=== PATIENT | male | born 1965 | race Caucasian/White ===

== ENCOUNTER 2024-09-16 18:16 | Emergency (ER) | payer BC, SELFPAY ==
[2024-09-16] VITALS (7 sets, daily range): BP systolic 136–164; BP diastolic 91–107; PULSE 79–84; RESP 17–21; TEMP 36.6; O2SAT 92–99; BMI 31.1
--- NOTE | 2024-09-16 18:37 | CT_ITS ---
PROCEDURE: CTA CHEST W/WO CONTRAST 09/16/2024 REASON FOR EXAM: CHEST PAIN, SOB TECHNIQUE: CTA axial imaging of the chest with intravenous contrast. Multiplanar and multisequence images were obtained. PATIENT PREPARATION: Per protocol One or more dose reduction techniques were used (e.g., Automated exposure control, adjustment of the mA and/or kV according to patient size, use of iterative reconstruction technique). CONTRAST: Omnipaque 350 VOLUME: 100 mL Not Provided Gauge IV COMPARISON: None FINDINGS: Hardware: None Lymph nodes: No suspicious adenopathy. Heart: Mild cardiomegaly. No pericardial effusion. Severe coronary artery calcifications. Thoracic Aorta: No thoracic aortic aneurysm or dissection. Pulmonary Vessels: No large central pulmonary emboli are identified. Contrast timing is suboptimal for evaluation of more distal branches. Most Proximal Level of Embolus (if embolus present): None Lungs and Airways: Central airways are patent without endobronchial lesions. Small amount of retained secretions. Patchy opacities in the lung bases, compatible with scarring and atelectasis. Linear opacities in the lingula and anterior right middle lobe, compatible with subsegmental atelectasis. No pneumothorax. No pleural effusion. Upper Abdomen: Contrast refluxes into the hepatic veins, suggestive of right heart dysfunction. Bones: Degenerative changes of the thoracic spine. CT/CTA Chest W/WO Contrast IMPRESSION: No evidence of pulmonary embolism or acute findings in the thorax. Contrast reflux into the hepatic veins, suggestive of right heart dysfunction. Reading Location: [facility]
--- NOTE | 2024-09-16 18:38 | ED.VIS.CHEST ---
HPI <MARKOS Blood - Last Filed: 09/16/24 21:41> History of Present Illness Chief Complaint: Chest Pain Narrative Narrative: Patient presenting today with midsternal chest pain that he describes as an aching/pressure sensation. He reports that the pain started about 30 minutes prior to arrival. It has been constant, nothing seems to make it better or worse. He is s/p CABG x [address] Fatima on 08/24/2024. He had a follow-up yesterday with the [facility] and was told everything was looking good. He reports that since yesterday he has had a mild dyspnea that seems to be worse today. No history of blood clots. He has a PMH of CAD, CVD, AG, COPD, frequent alcohol use, and tobacco abuse. He additionally reports a mild cough, he reports that coughing and taking deep breaths seems to worsen his chest pain. He has had no fevers or chills. PFSH <MARKOS Blood - Last Filed: 09/16/24 21:41> PFSH Medical History Blepharitis, right eye Conjunctivitis, right eye Back pain Neck pain Stroke Home Medications ?Medication ?Instructions ?Recorded ?Last Taken ?Type atorvastatin 10 mg tablet (Lipitor) 10 mg PO DAILY 12/17/22 Unknown History clopidogrel 75 mg tablet (Plavix) 75 mg PO DAILY 12/17/22 Unknown History tobramycin 0.3 % eye drops 1 drp ophthalmic (eye) Q2H #5 mL 12/17/22 Unknown Rx Allergy/AdvReac Type Severity Reaction Status Date / Time morphine Allergy Mild OTHER Verified 09/16/24 18:17 Social History Smoking Status: Current every day smoker tobacco type: cigarettes ROS <MARKOS Blood - Last Filed: 09/16/24 21:41> ROS ED Constitutional Constitutional ED: Denies chills or fever(s) Cardiovascular Cardiovascular: Reports chest pain; Denies palpitations Respiratory/Chest Respiratory/Chest: Reports cough and dyspnea; Denies wheezing Gastrointestinal Gastrointestinal: Denies abdominal pain, nausea or vomiting Musculoskeletal Musculoskeletal: Denies arthralgias or myalgias Integumentary Denies rash Neurologic Neurologic: Denies weakness EXAM <Aury Ridley PA - Last Filed: 09/16/24 21:41> Physical Exam Const Vital Signs: 09/16/24 18:18 09/16/24 18:19 09/16/24 18:36 Temperature 97.8 F Temperature Source Oral Pulse Rate 81 Respiratory Rate 19 H Respiratory Effort Short of Breath Blood Pressure 164/99 H Blood Pressure Mean 120 Pulse Ox 99 Oxygen Delivery Method Room Air Room Air 09/16/24 19:17 09/16/24 20:00 09/16/24 20:30 Temperature Temperature Source Pulse Rate 84 82 80 Respiratory Rate 18 18 21 H Respiratory Effort Blood Pressure 151/91 H 143/104 H 148/100 H Blood Pressure Mean 111 117 115 Pulse Ox 97 97 93 Oxygen Delivery Method Room Air 09/16/24 22:00 Temperature Temperature Source Pulse Rate 81 Respiratory Rate 17 Respiratory Effort Blood Pressure 136/96 H Blood Pressure Mean 109 Pulse Ox 94 Oxygen Delivery Method Room Air Positive well nourished, well developed and no apparent distress General Appearance ED: well developed HEENT Reports normocephalic and head/scalp atraumatic Mouth ED: Yes moist mucous membranes normal Eyes PERRL and EOMs intact bilaterally Neck full ROM and supple Chest Wall inspection of chest normal Chest Narrative: Incision is healing well, no erythema, no chest wall bruising, no warmth, Left-sided chest wall tenderness to palpation Resp normal respiratory effort and clear to auscultation bilaterally Cardio regular rate and regular rhythm GI soft to palpation, non-tender, non-distended and no masses Back/Spine normal ROM and normal to inspection Extremity normal to inspection and full ROM Neuro oriented x3, CN's II-XII intact bilaterally, moves all extremities, no focal motor deficits and no sensory deficits noted Sensorium / Orientation: awake and alert Psych mental status grossly normal and thought process normal Skin no rashes or lesions noted and no wounds <Dr. Aneesh Mast DO - Last Filed: 09/16/24 22:13> Physical Exam Const Vital Signs: 09/16/24 18:18 09/16/24 18:19 09/16/24 18:36 Temperature 97.8 F Temperature Source Oral Pulse Rate 81 Respiratory Rate 19 H Respiratory Effort Short of Breath Blood Pressure 164/99 H Blood Pressure Mean 120 Pulse Ox 99 Oxygen Delivery Method Room Air Room Air 09/16/24 19:17 09/16/24 20:00 09/16/24 20:30 Temperature Temperature Source Pulse Rate 84 82 80 Respiratory Rate 18 18 21 H Respiratory Effort Blood Pressure 151/91 H 143/104 H 148/100 H Blood Pressure Mean 111 117 115 Pulse Ox 97 97 93 Oxygen Delivery Method Room Air 09/16/24 22:00 Temperature Temperature Source Pulse Rate 81 Respiratory Rate 17 Respiratory Effort Blood Pressure 136/96 H Blood Pressure Mean 109 Pulse Ox 94 Oxygen Delivery Method Room Air MDM <MARKOS Blood - Last Filed: 09/16/24 21:41> [facility] MDM Narrative Medical 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 He is s/p CABG x 5 on 08/[address] Fatima. Cardiac workup will be obtained. CT of the chest will be obtained given recent surgery to assess for PE, infiltrate, and other cardiopulmonary abnormality. His CBC and BMP are largely unremarkable, initial troponin is 19. I did speak with on-call cardiothoracic surgeon, Dr. Pedro,. Recommended obtaining repeat troponin but otherwise did not feel that patient required transfer at this time and could follow-up in the office early next week as long as his delta troponin was unremarkable. Patient was given a small dose of IV Dilaudid for his pain, he did report improvement of his symptoms with this. Repeat troponin is elevated here at 72. He was started on IV heparin for NSTEMI, EKG did not show any ST elevation. I spoke with Dr. Peacock at [facility], he will be transferred ED to ED in stable condition. Lab Data Attestation: I reviewed the patient's lab results. Labs: Laboratory Results - last 24 hr 09/16/24 09/16/24 09/16/24 17:55 18:20 20:30 WBC Cancelled 10.4 Corrected WBC Cancelled RBC Cancelled 3.91 L Hgb Cancelled 12.3 L Hct Cancelled 36.9 L MCV Cancelled 94.4 H MCH Cancelled 31.5 MCHC Cancelled 33.3 RDW Std Deviation Cancelled 48.7 H RDW Coeff of Deepa Cancelled 14.1 Plt Count Cancelled 529 H MPV Cancelled 9.5 Immature Gran % (Auto) 0.500 Neut % (Auto) 59.7 Lymph % (Auto) 21.0 [place] % (Auto) 11.3 H Eos % (Auto) 6.2 H Baso % (Auto) 1.3 H Absolute Neuts (auto) 6.2 Absolute Lymphs (auto) 2.18 Nucleated RBC % 0 [address] Review Cancelled PT INR APTT Sodium Cancelled 135 Potassium Cancelled 4.1 Chloride Cancelled 98 Carbon Dioxide Cancelled 22.4 Anion Gap Cancelled 14 BUN Cancelled 10 Creatinine Cancelled 0.66 L Estim Creat Clear Calc Cancelled 129.23 Est GFR (MDRD) Non-Af Cancelled 108 BUN/Creatinine Ratio Cancelled 15.7 Glucose Cancelled 166 H Calcium Cancelled 10.1 Total Bilirubin Cancelled AST Cancelled ALT Cancelled Alkaline Phosphatase Cancelled Troponin T High Sens 19 Troponin T Hi Sens 2 Hr 72 H* Total Protein Cancelled Albumin Cancelled Globulin Cancelled Albumin/Globulin Ratio Cancelled Urine Color Cancelled Urine Clarity Cancelled Urine pH Cancelled Ur Specific [place] Cancelled U Specif Grav (Refrac) Cancelled Urine Protein Cancelled Urine Glucose (UA) Cancelled Urine Ketones Cancelled Urine Occult Blood Cancelled Urine Nitrite Cancelled Urine Bilirubin Cancelled Urine Urobilinogen Cancelled Ur Leukocyte Esterase Cancelled 09/16/24 21:32 WBC Corrected WBC RBC Hgb Hct MCV MCH MCHC RDW Std Deviation RDW Coeff of Deepa Plt Count MPV Immature Gran % (Auto) Neut % (Auto) Lymph % (Auto) [place] % (Auto) Eos % (Auto) Baso % (Auto) Absolute Neuts (auto) Absolute Lymphs (auto) Nucleated RBC % Diff Path Review PT 13.6 INR 1.0 APTT 27.9 Sodium Potassium Chloride Carbon Dioxide Anion Gap BUN Creatinine Estim Creat Clear Calc Est GFR (MDRD) Non-Af BUN/Creatinine Ratio Glucose Calcium Total Bilirubin AST ALT Alkaline Phosphatase Troponin T High Sens Troponin T Hi Sens 2 Hr Total Protein Albumin Globulin Albumin/Globulin Ratio Urine Color Urine Clarity Urine pH Ur Specific [place] U Specif Grav (Refrac) Urine Protein Urine Glucose (UA) Urine Ketones Urine Occult Blood Urine Nitrite Urine Bilirubin Urine Urobilinogen Ur Leukocyte Esterase Radiography Diagnostic Testing: Clinical Impression(s) from Imaging Studies Chest CTA 09/16/24 18:37 IMPRESSION: No evidence of pulmonary embolism or acute findings in the thorax. Contrast reflux into the hepatic veins, suggestive of right heart dysfunction. Reading Location: [facility] EKG Initial EKG: Comments: 81 bpm, normal sinus rhythm, no ST elevation, interpreted by attending physician <Dr. 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 He is s/p CABG x 5 on 08/[address] Fatima. Cardiac workup will be obtained. CT of the chest will be obtained given recent surgery to assess for PE, infiltrate, and other cardiopulmonary abnormality. His CBC and BMP are largely unremarkable, initial troponin is 19. I did speak with on-call cardiothoracic surgeon, Dr. Pedro,. Recommended obtaining repeat troponin but otherwise did not feel that patient required transfer at this time and could follow-up in the office early next week as long as his delta troponin was unremarkable. Patient was given a small dose of IV Dilaudid given morphine allergy for his pain, he did report improvement of his symptoms with this. Repeat troponin is elevated here at 72. He was started on IV heparin for NSTEMI, EKG did not show any ST elevation. I spoke with Dr. Peacock at [facility], he will be transferred ED to ED in stable condition. ED attending note: I evaluated the patient in conjunction with the ADAM. I agree with his/her statements and above findings. I have personally performed a face to face assessment of the patient and have reviewed the DAAM Note. I performed a substantive portion of the visit including all aspects of the following. I personally saw the patient performed chart review, physical exam, reviewed labs, imaging (if obtained), and formulated a treatment and management plan. History and exam as above: MDM/plan: Plan to obtain a broad lab and imaging workup given recent CABG. Have a low sufficient for admission given chest pain in the setting of recent invasive cardio thoracic surgery. Will reach out to the patient's thoracic surgeon to assist in disposition. This note was generated with [employer] dictation software. It may contain incorrect words, spelling, and punctuation that were not noted in review of the chart prior to signing. Lab Data Labs: Laboratory Results - last 24 hr 09/16/24 09/16/24 09/16/24 17:55 18:20 20:30 WBC Cancelled 10.4 Corrected WBC Cancelled RBC Cancelled 3.91 L Hgb Cancelled 12.3 L Hct Cancelled 36.9 L MCV Cancelled 94.4 H MCH Cancelled 31.5 MCHC Cancelled 33.3 RDW Std Deviation Cancelled 48.7 H RDW Coeff of Deepa Cancelled 14.1 Plt Count Cancelled 529 H MPV Cancelled 9.5 Immature Gran % (Auto) 0.500 Neut % (Auto) 59.7 Lymph % (Auto) 21.0 [place] % (Auto) 11.3 H Eos % (Auto) 6.2 H Baso % (Auto) 1.3 H Absolute Neuts (auto) 6.2 Absolute Lymphs (auto) 2.18 Nucleated RBC % [address] Review Cancelled PT INR APTT Sodium Cancelled 135 Potassium Cancelled 4.1 Chloride Cancelled 98 Carbon Dioxide Cancelled 22.4 Anion Gap Cancelled 14 BUN Cancelled 10 Creatinine Cancelled 0.66 L Estim Creat Clear Calc Cancelled 129.23 Est GFR (MDRD) Non-Af Cancelled 108 BUN/Creatinine Ratio Cancelled 15.7 Glucose Cancelled 166 H Calcium Cancelled 10.1 Total Bilirubin Cancelled AST Cancelled ALT Cancelled Alkaline Phosphatase Cancelled Troponin T High Sens 19 Troponin T Hi Sens 2 Hr 72 H* Total Protein Cancelled Albumin Cancelled Globulin Cancelled Albumin/Globulin Ratio Cancelled Urine Color Cancelled Urine Clarity Cancelled Urine pH Cancelled Ur Specific [place] Cancelled U Specif Grav (Refrac) Cancelled Urine Protein Cancelled Urine Glucose (UA) Cancelled Urine Ketones Cancelled Urine Occult Blood Cancelled Urine Nitrite Cancelled Urine Bilirubin Cancelled Urine Urobilinogen Cancelled Ur Leukocyte Esterase Cancelled 09/16/24 21:32 WBC Corrected WBC RBC Hgb Hct MCV MCH MCHC RDW Std Deviation RDW Coeff of Deepa Plt Count MPV Immature Gran % (Auto) Neut % (Auto) Lymph % (Auto) [place] % (Auto) Eos % (Auto) Baso % (Auto) Absolute Neuts (auto) Absolute Lymphs (auto) Nucleated RBC % Diff Path Review PT 13.6 INR 1.0 APTT 27.9 Sodium Potassium Chloride Carbon Dioxide Anion Gap BUN Creatinine Estim Creat Clear Calc Est GFR (MDRD) Non-Af BUN/Creatinine Ratio Glucose Calcium Total Bilirubin AST ALT Alkaline Phosphatase Troponin T High Sens Troponin T Hi Sens 2 Hr Total Protein Albumin Globulin Albumin/Globulin Ratio Urine Color Urine Clarity Urine pH Ur Specific [place] U Specif Grav (Refrac) Urine Protein Urine Glucose (UA) Urine Ketones Urine Occult Blood Urine Nitrite Urine Bilirubin Urine Urobilinogen Ur Leukocyte Esterase Radiography Diagnostic Testing: Clinical Impression(s) from Imaging Studies Chest CTA 09/16/24 18:37 IMPRESSION: No evidence of pulmonary embolism or acute findings in the thorax. Contrast reflux into the hepatic veins, suggestive of right heart dysfunction. [facility] T[facility] Chief Complaint: Chest Pain ED Midlevel Provider: Aury Ridley ED Provider: Aneesh Mast Dx/Rx/DC Orders Clinical Impression: Non-ST elevation WI (NSTEMI), S/P CABG x 5 Prescriptions: No Action clopidogrel [Plavix] 75 mg tablet 75 mg PO DAILY atorvastatin [Lipitor] 10 mg tablet 10 mg PO DAILY tobramycin 0.3 % drops 1 drp ophthalmic (eye) Q2H Qty: 5 0RF Rx Instructions: to affected eye(s) while awake for 5 days Primary Care Provider: Care Physician,No Primary Referrals: Care Physician,No Primary [Primary Care Provider] - Print Language: Occitan Disposition Disposition: Acute Care Hospital Discharge Location: [facility]
[2024-09-16 18:45] LABS: Absolute Lymphocyte Count 2.18 X10^3/uL (0.83-4.51); Absolute Neutrophil Count 6.2 X10^3/uL (2.0-7.7); Basophil# 0.13 X10^3/uL; Basophil% 1.3 % (0-1); Eosinophil# 0.64 X10^3/uL; Eosinophils% 6.2 % (0-5); Hematocrit 36.9 % (40-54); Hemoglobin 12.3 g/dL (13.0-16.5); Lymphocyte # 2.18 X10^3/ul (0.83-4.51); Mean Corp Hgb Conc 33.3 g/dL (32-36); Mean Corpuscular Hgb 31.5 pg (27.0-32.0); Mean Corpuscular Volume 94.4 fL (80-94); Mean Platelet Vol. 9.5 fl (6.2-12.0); Monocyte# 1.17 X10^3/uL; Monocyte% 11.3 % (0-10); NRBC Flagged by Analyzer 0 % (0-5); Neutrophil # 6.21 X10^3/uL (2.7-7.7); Neutrophil % 59.7 % (47-70); Platelet Count 529 K/mm3 (150-450); RBC Distribution Width CV 14.1 % (11.6-14.6); RBC Distribution Width SD 48.7 fl (35.1-43.9); Red Blood Count 3.91 M/mm3 (4.6-6.2); White Blood Count 10.4 K/mm3 (4.4-11.0)
[2024-09-16 19:05] LABS: Anion Gap 14 (5-15); BUN 10 mg/dL (4-19); BUN/Creat Ratio 15.7 RATIO (10-20); Calcium,Total 10.1 mg/dL (7.6-11.0); Carbon Dioxide 22.4 mmol/L (21.0-32.0); Chloride 98 mmol/L (98-108); Creatinine, Serum 0.66 mg/dL (0.70-1.20); EST Glomerular Filtration Rate 108 (>60); Estimated Creatinine Clearance 129.23 ml/min (50-250); Glucose 166 mg/dL (70-99); Potassium 4.1 mmol/L (3.3-5.1); Sodium Level 135 mmol/L (133-145); Troponin T High Sensitivity 19 ng/L (<=22)
[2024-09-16] MEDS: HYDROmorphone 0.5 MG/0.5 ML SYRINGE 0.25 MG IV ×2 (19:54→21:31)
[2024-09-16] MEDS: Ondansetron 4 MG/2 ML Vial IV (19:54)
[2024-09-16 21:09] LABS: Troponin T High Sens 2 HR 72 ng/L (<=22)
[2024-09-16] MEDS: Heparin Injection (Vial) 5,000 UNIT/ML VIAL 4000 UNIT IV (21:34)
[2024-09-16 21:46] LABS: Prothrombin Time (Protime)PT. 13.6 SECONDS (11.7-14.9)
[2024-09-16 21:47] LABS: Partial Thromboplast Time 27.9 Seconds (24.1-36.2)
[2024-09-16] MEDS: HEPARIN/D5w 25,000 UNITS 25,000 UNITS/250 ML IV.SOLN. 10 UNITS CONT INF (21:47)
--- NOTE | 2024-09-16 22:16 | ED.RN ---
Report called to Peg at [facility].
[2024-09-17] VITALS: BP 140/96; PULSE 85; RESP 17; O2SAT 95
== END 2024-09-17 00:19 | disposition short-term general hospital (02) ==
PROVIDERS: Physician Assistant; Emergency Provider Emergency Medicine; Visit Provider Emergency Medicine
DX: I22.9 Subsequent ST elevation (STEMI) myocardial infarction of unspecified site (principal); J44.9 Chronic obstructive pulmonary disease, unspecified; I21.4 Non-ST elevation (NSTEMI) myocardial infarction; I25.10 Atherosclerotic heart disease of native coronary artery without angina pectoris; Z95.1 Presence of aortocoronary bypass graft; G47.33 Obstructive sleep apnea (adult) (pediatric); R05.9 Cough, unspecified; F17.210 Nicotine dependence, cigarettes, uncomplicated; Z86.73 Personal history of transient ischemic attack (TIA), and cerebral infarction without residual deficits; R07.9 Chest pain, unspecified
CPT/HCPCS: 71275; 80048; 84484; 85025; 85610; 85730; 93005; 96374; 96375; 99285; Q9967; A4216; J2405

== ENCOUNTER 2024-10-04 05:08 | Inpatient (IN) | payer BC, SELFPAY ==
[2024-10-04] VITALS (43 sets, daily range): BP systolic 78–160; BP diastolic 49–105; PULSE 8–93; RESP 14–36; TEMP 33.7–39.8; O2SAT 55–100; BMI 29.3; BMI 31.5
[2024-10-04] MEDS: Naloxone 2 MG/2 ML Syringe IV (05:13)
--- NOTE | 2024-10-04 05:14 | EKG12_ITS ---
Test Reason : DYSRHYTHMIA Blood Pressure : */* mmHG Vent. Rate : 67 BPM Atrial Rate : 67 BPM P-R Int : 174 ms QRS Dur : 118 ms QT Int : 504 ms P-R-T Axes : 39 262 109 degrees QTcB Int : 532 ms Normal sinus rhythm Right superior axis deviation Incomplete right bundle branch block ST & T wave abnormality, consider lateral ischemia Prolonged QT Abnormal ECG Confirmed by Leobardo Arguello ([id number]), editor book PACO BLANCHARD ([id number]) on 10/10/2024 11:28:18 AM Referred By: Confirmed By: Leobardo Arguello
--- NOTE | 2024-10-04 05:14 | CT_ITS ---
PROCEDURE: STROKE BRAIN/HEAD WITHOUT CONT N/A REASON FOR EXAM: NEURO DEFICIT, ACUTE, STROKE SUSPECTED TECHNIQUE: Head CT without intravenous contrast. Coronal and Sagittal reconstruction series were provided. One or more dose reduction techniques were used (e.g., Automated exposure control, adjustment of the mA and/or kV according to patient size, use of iterative reconstruction technique. RADIATION DOSE SUMMARY: CTDlvol: 44.99 mGy DLP: 880.47 mGycm COMPARISON: None available FINDINGS: Mild off axis imaging. No intracranial hemorrhage, mass effect or CT evidence of large vascular territory acute infarct. The ventricles are within limits and midline. Mild volume loss, atrophy. Very small air-fluid level left maxillary sinus with mild areas of mucosal thickening. The mastoids and orbits appear within limits. Parasellar carotid calcification noted. CT/STROKE Brain/Head without Cont IMPRESSION: Mild off axis imaging. No intracranial hemorrhage, mass effect or CT evidence o f large vascular territory acute infarct. Reading Location: [id number]
--- NOTE | 2024-10-04 05:14 | CT_ITS ---
PROCEDURE: STROKE CTA HEAD AND NECK W/CON 10/04/2024 REASON FOR EXAM: NEURO DEFICIT, ACUTE, STROKE SUSPECTED TECHNIQUE: CTA imaging of the head and neck from the aortic arch to the skull vertex with out contrast and with intravenous contrast. Multiplanar and multisequence images were obtained. Coronal and sagittal MIP images CONTRAST: 100 cc Isovue 370 IV One or more dose reduction techniques were used (e.g., Automated exposure control, adjustment of the mA and/or kV according to patient size, use of iterative reconstruction technique). RADIATION DOSE SUMMARY: CTDlvol: 33.21 mGy DLP: 831.48 mGycm COMPARISON: None available FINDINGS: Aortic arch appears within limits. Standard three-vessel arch. Status post partially imaged median sternotomy with edema and fluid at the manubrial segment with suprasternal collection of fluid and air measuring approximately 2 cm, correlate for surgical timing possible developing infection, phlegmon, abscess. Status post CABG. Areas of platelike atelectasis medial right upper lobe and area of partial collapse consolidation of the anterior left upper lobe and visualized lingula may represent atelectasis with developing pneumonia not excluded. The left vertebral artery is dominant. Both vertebral arteries contribute to the basilar and are patent throughout the cervical portion. There is some motion artifact about the great vessels which limits the evaluation. The right and left common and internal carotid arteries are patent without flow significant stenosis, dissection or vessel cut off. Undulation of the left internal carotid artery. Basilar artery and posterior circulation appears intact. Horizontal and vertical portions of the petrous internal carotid artery and carotid terminus appear within limits with some atherosclerotic calcification noted. The right and left middle and anterior cerebral arteries appear patent. ACOM is present and the left side appears to mostly contribute to the right anterior cerebral artery. No vessel cut off, flow significant stenosis or aneurysm identified. Major dural venous sinuses appear within limits. CT/STROKE CTA Head AND Neck W/Con IMPRESSION: No vessel cut off, flow significant stenosis, dissection or aneurysm identified within the head or neck. Status post partially imaged median sternotomy with edema and fluid at the manu brial segment with suprasternal collection of fluid and air measuring approximately 2 cm, correlate for surgical timing possi ble developing infection, phlegmon, abscess. Status post CABG. Areas of platelike atelectasis medial right upper lobe and area of partial keshawn apse consolidation of the anterior left upper lobe and visualized lingula may represent atelectasis with developing pneumonia not excluded. Reading Location: [id number]
[2024-10-04 05:24] LABS: Absolute Lymphocyte Count 0.38 X10^3/uL (0.83-4.51); Absolute Neutrophil Count 11.5 X10^3/uL (2.0-7.7); Basophil# 0.04 X10^3/uL; Basophil% 0.3 % (0-1); Hematocrit 40.8 % (40-54); Hemoglobin 13.6 g/dL (13.0-16.5); Lymphocyte # 0.38 X10^3/ul (0.83-4.51); Lymphocyte % 2.8 % (19-41); Mean Corp Hgb Conc 33.3 g/dL (32-36); Mean Corpuscular Hgb 31.1 pg (27.0-32.0); Mean Corpuscular Volume 93.4 fL (80-94); Mean Platelet Vol. 10.8 fl (6.2-12.0); Monocyte# 1.36 X10^3/uL; Monocyte% 10.1 % (0-10); NRBC Flagged by Analyzer 0.9 % (0-5); Neutrophil # 11.47 X10^3/uL (2.7-7.7); Neutrophil % 84.9 % (47-70); POSITIVE DIFFERENTIAL YES; POSITIVE MORPHOLOGY YES; Platelet Count 243 K/mm3 (150-450); RBC Distribution Width CV 14.8 % (11.6-14.6); Red Blood Count 4.37 M/mm3 (4.6-6.2); White Blood Count 13.5 K/mm3 (4.4-11.0)
[2024-10-04] MEDS: Ondansetron 4 MG/2 ML Vial IV (05:34)
[2024-10-04 05:35] LABS: International Normalized Ratio 1.4; Prothrombin Time (Protime)PT. 17.6 SECONDS (11.7-14.9)
[2024-10-04 05:36] LABS: Partial Thromboplast Time 30.6 Seconds (24.1-36.2)
[2024-10-04 05:45] LABS: Acetaminophen (Tylenol) Level < 5.0 ug/mL (8.0-19.0); Alcohol, Blood (Medical)-Serum < 10.1 mg/dL (<=10.0); Lipase 65 U/L (13-75); Salicylate < 0.5 mg/dL (2.8-20.0)
[2024-10-04 05:54] LABS: Differential Indicated SCAN CRITERIA MET
[2024-10-04 05:59] LABS: AST(SGOT) 2689 U/L (<=37); Alanine Aminotransfer ALT/SGPT 716 U/L (<=46); Albumin, Serum 3.2 g/dL (3.5-5.0); Alkaline Phosphatase 149 U/L (40-129); Anion Gap 38 (5-15); BUN 62 mg/dL (4-19); BUN/Creat Ratio 17.2 RATIO (10-20); Bilirubin, Direct 0.28 mg/dL (0.00-0.30); CPK Total, Creatine Kinase > 22000 U/L (24-195); Calcium,Total 8.2 mg/dL (7.6-11.0); Carbon Dioxide 10.4 mmol/L (21.0-32.0); Chloride 77 mmol/L (98-108); Creatinine, Serum 3.61 mg/dL (0.70-1.20); EST Glomerular Filtration Rate 19 (>60); Estimated Creatinine Clearance 22.95 ml/min (50-250); Globulin 4.3 g/dL (2.2-4.2); Glucose 170 mg/dL (70-99); Potassium 5.5 mmol/L (3.3-5.1); Protein, Total 7.5 g/dL (5.9-8.4); Sodium Level 125 mmol/L (133-145); Total Bilirubin 0.63 mg/dL (0.00-1.30)
--- NOTE | 2024-10-04 06:10 | RAD_ITS ---
PROCEDURE: CHEST 1 VIEW 10/04/2024 REASON FOR EXAM: NEURO DEFICIT, ACUTE, STROKE SUSPECTED TECHNIQUE: Frontal view of the chest. FINDINGS: Patchy airspace opacity at the left mid to lower lung. Mild patchy opacity at the medial right base. May be inflammatory or infectious. Platelike area of atelectasis right midlung. Band of opacity at the medial right upper lung may represent area of collapse, atelectasis. Status post median sternotomy. Ectatic appearing thoracic aorta. RAD/Chest 1 View IMPRESSION: Patchy airspace opacity at the left mid to lower lung. Mild patchy opacity at t he medial right base. May be inflammatory or infectious. Platelike area of atelectasis right midlung. Band of opacity at the medial rig ht upper lung may represent area of collapse, atelectasis. Reading Location: [id number]
--- NOTE | 2024-10-04 06:10 | RAD_ITS ---
PROCEDURE: PELVIS 1 OR 2 VIEWS 10/04/2024 REASON FOR EXAM: FALL TECHNIQUE: 1 view(s) of the pelvis. 2 total images to include the entire pelvis FINDINGS: No fracture or dislocation. SI joints and pubic symphysis appear within limits. Multilevel lumbar spondylosis/discogenic change. RAD/Pelvis 1 or 2 Views IMPRESSION: No fracture or dislocation. Reading Location: [id number]
[2024-10-04 06:11] LABS: Mucous, Urine 0 SEEN /hpf (<or=2+)
[2024-10-04 06:14] LABS: Color, Urine Yellow (Yellow); Glucose, Dipstick Normal (Normal); Ketone-Dipstick Negative (Negative); Leukocyte Esterase-Dipstick 500 /ul (Negative); Nitrite-Dipstick Negative (Negative); Occult Blood-Urine 250 /ul (Negative); Protein-Dipstick 100 mg/dl (Negative); Urine Bilirubin Dipstick Negative (Negative); Urine Clarity Sl. Cloudy (Clear); Urine Urobilinogen Normal (Normal)
[2024-10-04 06:20] LABS: Bacteria 4+ /hpf (None Seen); Red Blood Cells-Urine 0-5 SEEN /hpf (0-5); Squamous Epithelial Cells - UA 0-5 SEEN /hpf (0-5); White Blood Cells 10-25 SEEN /hpf (0-5)
[2024-10-04] MEDS: NORMAL SALINE 999 ML IV (06:25)
[2024-10-04 06:27] LABS: Acanthocytes RARE; Anisocytosis 1+; Differential Comment SCANNED; Ovalocyte 1+; Platelet Estimate ADEQUATE (ADEQ); Polychromasia 1+; Target Cells RARE; Tear Drop Cell 1+
[2024-10-04 06:36] LABS: Blood Gas Specimen Type VEN; O2 Delivery Device Not entered; SITE Not entered; VBG BASE EXCESS -13 mmol/L (-1.0-3.5); VBG Bicarbonate 15 mmol/L (22-26); VBG PO2 43 mmHg (25-40); VBG SO2 68 % (50-70); VBG TCO2 17 mmol/L (23-33); VBG pCO2 39.5 mmHg (41-51)
[2024-10-04 06:38] LABS: Amphetamine Urine NEGATIVE (<1000 ng/mL); Barbiturate Urine NEGATIVE (< 200 ng/mL); Benzodiazepine Urine NEGATIVE (< 200 ng/mL); Buprenorphine Urine NEGATIVE (< 200 ng/mL); Cocaine Urine NEGATIVE (< 300 ng/mL); Fentanyl, Urine NEGATIVE; Methadone Urine NEGATIVE (< 300 ng/mL); Opiates Urine PRESUMPTIVE POSITIVE (< 300 ng/mL); Oxycodone, Urine NEGATIVE (< 100 ng/mL); PCP Urine NEGATIVE (< 25 ng/mL); THC Urine NEGATIVE (< 50 ng/mL)
[2024-10-04] MEDS: Piperacil/Tazobactam 2,250 MG in 0.9% Normal Saline (50mL MB+) 50 ML 100 MG IV (06:59)
[2024-10-04 07:13] LABS: Lactic Acid 8.5 mmol/L (0.0-2.0)
--- NOTE | 2024-10-04 07:20 | HP.PCM.HOS_ITS ---
HPI - General General Date of Admission: 10/04/24 Date of Service: 10/04/24 Chief Complaint: Fall with weakness and slurred speech HPI Narrative ROQUE PUENTES, is a 59 M who presented to [facility] ED on 10/04/2024 with a fall at home with weakness and slurred speech. Was noted by EMS to have left-sided weakness and dysarthria so he was made a stroke alert on arrival. CT brain and CTA head/neck unremarkable. Per teleneurology, symptoms seem more consistent with encephalopathy rather than stroke. Patient was hypothermic to 93 F on arrival to the ED and was found to have severe lab abnormalities including lactic acid 8.5, WBC count 13, sodium 135, potassium 5.5, chloride 77, bicarb 10, creatinine 3.61 (baseline 0.6), BUN 62, AST 269, ALT 716, alk phos 149, CPK level greater than 22,000 and VBG with pH 7.20 and PCO2 17. Patient received 3 L of IV fluids in the ED but despite this remained borderline hypotensive, had a low-grade fever and remained moderately encephalopathic. Did also have some abdominal pain on palpation. CT chest abdomen pelvis without contrast showed finding suggestive of bilateral pyelonephritis as well as diffuse bladder wall thickening; also showed patchy infiltrates in the left upper lobe and right middle lobes. Patient is on scheduled morphine 30 mg twice daily and gabapentin 800 mg 3 times daily. Suspected patient was septic secondary to UTI with pyelonephritis with encephalopathy possibly secondary to sepsis versus poor renal clearance of morphine and gabapentin in setting of severe CHRISTINE. Will be admitted to the ICU for further management. [facility] Medical History Blepharitis, right eye Conjunctivitis, right eye Back pain Neck pain Stroke Home Medications ?Medication ?Instructions ?Recorded ?Last Taken ?Type clopidogrel 75 mg tablet (Plavix) 75 mg PO DAILY 12/1710/03/24 History aspirin 81 mg tablet 81 mg PO DAILY 10/04/2409/09 History diazepam 5 mg tablet 5 mg PO QHS PRN PRN anxiety 10/04/24 10/03/24 History duloxetine 20 mg capsule,delayed 20 mg PO DAILY 10/03/24 History release ezetimibe 10 mg tablet 10 mg PO DAILY 10/04/2409/0925 History gabapentin 800 mg tablet 800 mg PO TID 10/04/2410/03 History hydrocodone 10 mg-acetaminophen 1 - 2 tab PO PRN PRN p ain 10/04/24 10/03/24 History 325 mg tablet isosorbide mononitrate 30 mg 30 mg PO DAILY 10/04/24 0 10/03/24 History tablet,extended release 24 hr metoprolol succinate 25 mg 25 mg PO DAILY 10/04/24 History tablet,extended release 24 hr morphine 30 mg tablet,extended 30 mg PO Q12.TCU 10/03/24 History release nitroglycerin 0.4 mg sublingual 0.4 mg sublingual Q5M angina 10/04/24 Unknown History tablet Allergy/AdvReac Type Severity Reaction Status Date / Time morphine Allergy Mild OTHER Verified 10/04/24 05:59 Social History Smoking Status: Current every day smoker tobacco type: cigarettes ROS Review of Systems ROS Unobtainable: due to mental status Constitutional Constitutional: Reports fatigue and weakness; Denies chills or fever(s) Cardiovascular Cardiovascular: Denies chest pain Respiratory/Chest Respiratory/Chest: Denies shortness of breath at rest Gastrointestinal Gastrointestinal: Reports abdominal pain Genitourinary Genitourinary: Reports dysuria Musculoskeletal Musculoskeletal: Denies back pain Neurologic Neurologic: Denies dizziness or headache(s) Vital Signs Vital Signs Vital Signs: 10/04/24 05:09 10/04/24 05:39 10/04/24 06:00 Temperature 92.6 F L 94.1 F L 94.2 F L Temperature Source Core Core Core Pulse Rate 67 8 L 67 Respiratory Rate 22 H 25 H 22 H Blood Pressure 133/88 H 155/99 H 155/99 H Blood Pressure Mean 103 117 117 Pulse Ox 100 91 91 Oxygen Delivery Method Room Air Room Air Oxygen Flow Rate (L/min) 10/04/24 06:17 10/04/24 06:19 10/04/24 06:30 Temperature 94.3 F L Temperature Source Core Pulse Rate 67 Respiratory Rate 19 H Blood Pressure 160/98 H Blood Pressure Mean 118 Pulse Ox 90 Oxygen Delivery Method Nasal Cannula Nasal Cannula Nasal Cannula Oxygen Flow Rate (L/min) 2 2 2 10/04/24 06:39 Temperature 94.2 F L Temperature Source Core Pulse Rate 66 Respiratory Rate 24 H Blood Pressure 158/97 H Blood Pressure Mean 117 Pulse Ox 90 Oxygen Delivery Method Nasal Cannula Oxygen Flow Rate (L/min) 2 Weight Weight: 85 kg Body Mass Index (BMI) 29.3 Physical Exam Const alert and no apparent distress Constitutional Narrative: Upper middle-aged male, class I obesity, fatigued appearing and moderately encephalopathic, alert to person but not place or time, otherwise laying back comfortably in bed and in no acute distress. General Appearance: cooperative and comfortable HEENT normocephalic, head/scalp atraumatic, hearing grossly normal bilaterally and nasal mucous membranes and turbinates normal Eyes PERRL, EOMs intact bilaterally and conjunctivae normal Neck full ROM Chest inspection of chest normal Resp normal respiratory effort, normal air movement, no use of accessory muscles and clear to auscultation bilaterally Cardio regular rate, regular rhythm, no murmurs and peripheral pulses 2+ throughout GI GI Narrative: Abdomen with mild tenderness diffusely on exam. Otherwise soft, nondistended and with normoactive bowel sounds. Back/Spine normal ROM Extremity normal to inspection and no pedal edema Skin no rashes or lesions noted Neuro moves all extremities and no focal motor deficits Results Lab / Micro Data 10/04/24 05:15 10/04/24 05:15 Labs: Laboratory Results - last 24 hr 10/04/24 05:15: WBC 13.5 H, RBC 4.37 L, Hgb 13.6, Hct 40.8, MCV 93.4, MCH 31.1, MCHC 33.3, RDW Std Deviation 51.0 H, RDW Coeff of Deepa 14.8 H, Plt Count 243, MPV 10.8, Immature Gran % (Auto) 1.900 H, Neut % (Auto) 84.9 H, Lymph % (Auto) 2.8 L , Kingfisher % (Auto) 10.1 H, Eos % (Auto) 0.0, Baso % (Auto) 0.3, Absolute Neuts (auto) 11.5 H, Absolute Lymphs (auto) 0.38 L, Nucleated RBC % 0.9, Differential Comment SCANNED, Platelet Estimate ADEQUATE, Polychromasia 1+, Anisocytosis 1+, Target Cells RARE, Tear Drop Cells 1+, Ovalocytes 1+, Acanthocytes (Spur) RARE, PT 17.6 H, INR 1.4, APTT 30.6, Sodium 125 L, Potassium 5.5 H, Chloride 77 L, C arbon Dioxide 10.4 L, Anion Gap 38 H, BUN 62 H, Creatinine 3.61 H, Estim Creat Clear Calc 22.95 L, Est GFR (MDRD) Non-Af 19 L, BUN/Creatinine Ratio 17.2, G lucose 170 H, Calcium 8.2, Total Bilirubin 0.63, Direct Bilirubin 0.28, AST 2689 H, ALT 716 H, Alkaline Phosphatase 149 H, Total Creatine Kinase > 65662 H, Total Protein 7.5, Albumin 3.2 L, Globulin 4.3 H, Lipase 65, Procalcitonin 11.80 H, S alicylates < 0.5 L, Acetaminophen < 5.0 L, Ethyl Alcohol < 10.1 10/04/24 06:02: Urine Color Yellow, Urine Clarity Sl. Cloudy, Urine pH 6.0, Ur Specific [place] 1.020, Urine Protein 100 H, Urine Glucose (UA) Normal, Urine Ketones Negative, Urine Occult Blood 250 H, Urine Nitrite Negative, Urine Bilirubin Negative, Urine Urobilinogen Normal, Ur Leukocyte Esterase 500 H, Urine RBC 0-5 SEEN, Urine WBC 10-25 SEEN, Ur Squamous Epith Cells 0-5 SEEN, Urine Bacteria 4+, Urine Mucus 0 SEEN, Urine Opiates Screen PRESUMPTIVE POSITIVE, U Buprenorphine Qual NEGATIVE, Ur Oxycodone Screen NEGATIVE, Urine Methadone Screen NEGATIVE, Urine Fentanyl Screen NEGATIVE, Ur Barbiturates Screen NEGATIVE, Ur Phencyclidine Scrn NEGATIVE, Ur Amphetamines Screen NEGATIVE, U Benzodiazepines Scrn NEGATIVE, Urine Cocaine Screen NEGATIVE, U Cannabinoids Screen NEGATIVE 10/04/24 06:24: Lactic Acid 8.5 H* ABG Data ABG results: ABG 10/04/24 06:32 Specimen Type JOSE Sample Site Not entered VBG pH 7.20 L VBG pO2 43 H VBG HCO3 15 L VBG Total CO2 17 L VBG O2 Sat (Calc) 68 VBG Base Excess -13 L POC Mix VBG pCO2 Pt Tmp 39.5 L O2 Delivery Device Not entered Crit Call To/Read Back Yes Blood Gas Notified Time 06:34:07 Imaging Radiology Impression Brain CT 10/04/24 05:14 IMPRESSION: Mild off axis imaging. No intracranial hemorrhage, mass effect or CT evidence of large vascular territory acute infarct. Reading Location: [facility] Head/Neck CTA 10/04/24 05:14 IMPRESSION: No vessel cut off, flow significant stenosis, dissection or aneurysm identified within the head or neck. Status post partially imaged median sternotomy with edema and fluid at the manubrial segment with suprasternal collection of fluid and air measuring approximately 2 cm, correlate for surgical timing possible developing infection, phlegmon, abscess. Status post CABG. Areas of platelike atelectasis medial right upper lobe and area of partial collapse consolidation of the anterior left upper lobe and visualized lingula may represent atelectasis with developing pneumonia not excluded. Reading Location: [facility] Chest X-Ray 10/04/24 06:10 IMPRESSION: Patchy airspace opacity at the left mid to lower lung. Mild patchy opacity at the medial right base. May be inflammatory or infectious. Platelike area of atelectasis right midlung. Band of opacity at the medial right upper lung may represent area of collapse, atelectasis. Reading Location: [facility] Pelvis X-Ray 10/04/24 06:10 IMPRESSION: No fracture or dislocation. Reading Location: [facility] Assessment & Plan Assessment/Plan (1) Sepsis: (2) Acute pyelonephritis: (3) Acute kidney injury: (4) Metabolic acidosis: (5) Rhabdomyolysis: PLAN: Plan Patient is a 59-year-old male who presented to [facility] ED on 10/04/2024 with worsening weakness and slurred speech. 1. Sepsis without shock suspected secondary to acute pyelonephritis versus aspiration pneumonia ? Admit under inpatient status to ICU. Met sepsis criteria on admit with lactic acidosis, encephalopathy, severe CHRISTINE, fevers, hypotension and suspected urinary source versus aspiration pneumonia. CT chest abdomen pelvis without contrast showed findings suggestive of bilateral pyelonephritis as well as diffuse bladder wall thickening; also showed patchy infiltrates in the left upper lobe and right middle lobes. UA with 500 leukocyte esterase, negative nitrates but 4+ bacteria. Given 30 cc/kg of IV fluids in the ED with continued borderline hypotension. Will continue LR 150 cc/hr for now and can utilize low-dose Levophed to maintain MAP greater than 65 as needed. Will treat with IV vancomycin and Zosyn for now. Follow-up blood cultures and urine culture. 2. Acute toxic encephalopathy ? Patient only A&O x1 to person on admit. Suspect secondary to poor clearance of home morphine and gabapentin in setting of severe CHRISTINE as noted below. UTI as above may also be contributing. Continue treatment as above. Decreased home morphine and gabapentin doses for now. Monitor and avoid sedating medications as able. 3. Severe CHRISTINE ? Creatinine 3.61 on admit, baseline around 0.6. Presume secondary to sepsis and rhabdomyolysis. Given heavy IV fluids on admit. Follow-up a.m. BMP and monitor urine output. Bynum catheter in place for accurate I's and O's. 4. Rhabdomyolysis ? CPK level greater than 22,000 on admit. Had fall at home with last known well around 2200 and was found facedown on the floor about 7 hours later. Treating with IV fluids as noted above. Monitor daily CPK level. 5. History of CAD with recent CABG x 5, chronic mild HFrEF, hypertension, hyperlipidemia ? Follows with cardiology in [place]. Had recent CABG x 5 in August. Echo in August showed EF 40 to 45%. Continue home aspirin and Plavix. Holding home blood pressure medications for now in setting of sepsis. Holding home Zetia in setting of rhabdo. 6. Chronic pain syndrome ? On home duloxetine, gabapentin, morphine and hydrocodone?acetaminophen as needed. Reviewed OARRS and patient has been filling these regularly. Treated with reduced doses of gabapentin and morphine for now as noted above. Continue home duloxetine. Will hold home hydrocodone?acetaminophen for now and can treat with Tylenol as needed. Chronic medical conditions: ? Class I obesity with AG: BMI 31 on admit. Complicates hospital course, care and prognosis. Continue home CPAP at night. ? Reported frequent alcohol use: Was reported at ED visit in early September. Alcohol level negative on admit. [facility] protocol ordered. ? Tobacco use: Nicotine replacement therapy available as needed. DVT prophylaxis: Heparin subcu CODE STATUS: Full code, unverified Expected disposition: TBD Total clinical time spent by myself addressing the patient's medical issues, reviewing all the data, and collaborating with patient's care team: 75 minutes. Charges/Coding Visit Charges Inpatient E&M: 70145 Init Hosp L3
--- NOTE | 2024-10-04 07:29 | PCA ---
CALLED [facility] @ [phone] THEY WILL CARDIO TH. ON THE PHONE TO CONS. WITH DR. ODELL. PUSHED THE IMAGES UP TO [place]
[2024-10-04] MEDS: Vancomycin HCl 1,250 MG in 0.9% Normal Saline (250mL Bag) 250 ML 167 MG IV (07:43)
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
[2024-10-04] MEDS: Lactated Ringers 1,000 ML 150 ML IV ×3 (08:56→20:04)
--- NOTE | 2024-10-04 10:07 | CT_ITS ---
PROCEDURE: CT CHEST, ABD, PELVIS WO CONT 10/04/2024 REASON FOR EXAM: SEPSIS W/ UNCLEAR SOURCE, CHEST PAIN, ABD PAIN TECHNIQUE: Chest, abdomen and pelvis CT without intravenous contrast. Coronal and Sagittal reconstruction series were provided. One or more dose reduction techniques were used (e.g., Automated exposure control, adjustment of the mA and/or kV according to patient size, use of iterative reconstruction technique. RADIATION DOSE SUMMARY: CTDlvol: 20 mGy DLP: 1654.47 mGycm COMPARISON: Prior study dated September 16, 2024. FINDINGS: CT CHEST: Hardware: Prior CABG. Lymph nodes: Small benign-appearing mediastinal lymph nodes. Heart and Vasculature: Cardiomegaly. No pericardial effusion. Atherosclerotic calcifications of the thoracic aorta. Thoracic aorta and pulmonary arteries have normal contours; noncontrast technique limits evaluation. Coronary Artery Calcifications: Present Lungs and Airways: Patchy infiltrate in the peripheral lateral aspect of the left upper lobe with volume loss. Atelectasis and/or infiltrate in the medial aspect of the right middle lobe. Mild degree of dependent bibasilar atelectasis. Pleura: No significant pleural effusion. Bones: Degenerative changes of the thoracic spine. CT ABDOMEN / PELVIS: Noncontrast technique limits evaluation of the abdominal and pelvic viscera. Liver: Normal size. No mass. Gallbladder: Sludge or small gallstone seen in the gallbladder lumen. Spleen: Normal size. Pancreas: Normal size without evidence of mass surrounding inflammation or ductal dilation. Adrenals: Unremarkable Kidneys: There is heterogeneous uptake by the renal cortices bilaterally more prominent on the left side. This may represent either bilateral patchy pyelonephritis versus possible bilateral renal ischemic areas. The left kidney is swollen as compared to the right. Clinical correlation recommended. Bladder: A Bynum catheter is seen within an empty urinary bladder. There is diffuse bladder wall thickening. Clinical correlation recommended. Prostatic calcification. Bowel: No bowel obstruction. Appendix: The appendix is not identified. There is no inflammatory process identified in the right lower quadrant to suggest appendicitis. Lymph nodes: Unremarkable. Vasculature: Mild diffuse atherosclerotic calcifications are noted. Peritoneum / Retroperitoneum: Unremarkable Bones: Degenerative changes of the spine. CT/CT Chest, Abd, Pelvis WO Cont IMPRESSION: Patchy infiltrate in the lingular segment of the left upper lobe as well as the medial aspect of the right middle lobe with atelectasis at the lung bases. Small gallstones or sludge seen along the gallbladder lumen. Abnormal appearance of both kidneys worse on the left side. Findings suggestiv e of bilateral pyelonephritis versus possible areas of decreased vascularity/infarcts. The left kidney is larger than the ri ght. Diffuse bladder wall thickening. A Bynum catheter is seen within the decompres sed urinary bladder. Reading Location: [facility]
--- NOTE | 2024-10-04 10:27 | PCM.RX.CS ---
Consult Antibiotic Management Pharmacy has been consulted to manage selected antibiotic: Vancomycin Type of Intervention Type of Consult: New start Suspected Infection Suspected Infection: Sepsis Prior Doses of Antibiotics Prior Doses of Antibiotics Received/Current Regimen: Vancomycin 1250 mg IV x 1 given 10/04/24 @ 0779 Labs Labs: Sodium 125 mmol/L (133-145) L 10/04/24 05:15 Potassium 5.5 mmol/L (3.3-5.1) H 10/04/24 05:15 Chloride 77 mmol/L (98-108) L 10/04/24 05:15 Carbon Dioxide 10.4 mmol/L (21.0-32.0) L 10/04/24 05:15 Anion Gap 38 (5-15) H 10/04/24 05:15 BUN 62 mg/dL (4-19) H 10/04/24 05:15 Creatinine 3.61 mg/dL (0.70-1.20) H 10/04/24 05:15 Est GFR (MDRD) Non-Af 19 (>60) L 10/04/24 05:15 BUN/Creatinine Ratio 17.2 RATIO (10-20) 10/04/24 05:15 Glucose 170 mg/dL (70-99) H 10/04/24 05:15 Dosing Weight Weight used for dosin kg Estimated Creatinine Clearance Estimated Creatinine Clearance: ~ 23 Goal Trough Goal Trough: 15-20 mcg/mL Pharmacy Plan for Drug Dosing Pharmacy Plan for Drug Dosing: Vancomycin 1250 mg IV x 1 followed by 750 mg Q24H Pharmacy Service will continue to monitor and adjust dosing as required. Follow-Up Labs Follow-Up Labs: Trough: Vancomycin Date/Time Labs Ordered Labs to be done on [date and time ordered]: 10/05/24 @ 1869
[2024-10-04 10:33] LABS: Reflex Lactate? Y
[2024-10-04 12:37] LABS: Lactic Acid 3.3 mmol/L (0.0-2.0)
[2024-10-04] MEDS: Piperacil/Tazobactam 3.375 GM in 0.9% Normal Saline (50mL MB+) 50 ML IV ×2 (13:33→22:40)
[2024-10-04 15:13] LABS: Anion Gap 23 (5-15); BUN 72 mg/dL (4-19); BUN/Creat Ratio 20.7 RATIO (10-20); Calcium,Total 6.5 mg/dL (7.6-11.0); Carbon Dioxide 18.2 mmol/L (21.0-32.0); Chloride 88 mmol/L (98-108); Creatinine, Serum 3.48 mg/dL (0.70-1.20); EST Glomerular Filtration Rate 19 (>60); Estimated Creatinine Clearance 24.64 ml/min (50-250); Glucose 122 mg/dL (70-99); Potassium 4.9 mmol/L (3.3-5.1); Sodium Level 128 mmol/L (133-145)
[2024-10-04] MEDS: Acetaminophen 650 MG Suppository RC ×2 (16:19→22:49)
[2024-10-04 17:28] LABS: Bedside Glucose 90 mg/dL (74-106)
[2024-10-04] MEDS: Norepinephrine 8 MG in 0.9% Normal Saline (250mL Bag) 242 ML 9.4 MG CONT INF (17:34)
[2024-10-04] MEDS: Naloxone 2 MG/2 ML Syringe 1 MG IV (18:16)
[2024-10-04 19:31] LABS: Blood Gas Specimen Type VEN; O2 Delivery Device Cannula; SITE Not entered; VBG BASE EXCESS -9 mmol/L (-1.0-3.5); VBG Bicarbonate 16 mmol/L (22-26); VBG PO2 34 mmHg (25-40); VBG SO2 65 % (50-70); VBG TCO2 17 mmol/L (23-33); VBG pH 7.38 (7.32-7.42)
[2024-10-04 19:50] LABS: Allen Test Positive; Base Excess -12 mmol/L (-2 to +2); Bicarbonate 13.8 mmol/L (22-26); Blood Gas Specimen Type ART; Comment 16 10; Mode Not entered; O2 Delivery Device BiPAP; PO2 78 mmHG (75-100); RR 16; SITE R Fem; SO2 95 % (95-99); Total Carbon Dioxide 15 mmol/L; pCO2 24.1 mmHg (35-45); pH 7.37 (7.35-7.45)
[2024-10-04] MEDS: Sodium Bicarbonate 8.4% 50 ML Syringe 50 MEQ IV (19:56)
[2024-10-04] MEDS: 0.9% Normal Saline (250mL Bag) 250 ML 15 ML IV (22:41)
[2024-10-04] MEDS: Heparin Injection (Vial) 5,000 UNIT/ML VIAL 5000 UNIT SC (22:41)
[2024-10-05] VITALS (67 sets, daily range): BP systolic 56–133; BP diastolic 27–89; PULSE 0–180; RESP 14–29; TEMP 35.3–38.6; O2SAT 65–97; BMI 32.3; BMI 31.6
--- NOTE | 2024-10-05 00:24 | CPS ---
Ordered ABG, mixed gas obtained
[2024-10-05 00:27] LABS: Allen Test Positive; Base Excess -10 mmol/L (-2 to +2); Bicarbonate 16.4 mmol/L (22-26); Blood Gas Specimen Type ART; Comment 16 10; Mode Not entered; O2 Delivery Device BiPAP; PO2 77 mmHG (75-100); RR 14; SITE R Fem; SO2 94 % (95-99); Total Carbon Dioxide 17 mmol/L; pCO2 33.9 mmHg (35-45); pH 7.29 (7.35-7.45)
--- NOTE | 2024-10-05 00:57 | NURSING ---
2200- gold ring taken off patient's right hand and placed in blue cup, locked in med engineering test specialist patient room.
--- NOTE | 2024-10-05 02:06 | CPS ---
RN notified RT FiO2 was increased to 65% due to poor pulse ox reading
--- NOTE | 2024-10-05 02:07 | CPS ---
FiO2 increased to 80% due to poor pulse ox reading
--- NOTE | 2024-10-05 02:30 | NURSING ---
Trouble obtaining an accurate spO2 reading. Tried putting the probe on ear, ear lobes, behind ankle, toe, forehead, nose. Respiratory therapist aware and attempted to help nursing staff with issue. Hospitalist also aware of situation.
[2024-10-05] MEDS: 0.9% Saline Lock 10 ML Syringe IV ×5 (04:15→12:37)
[2024-10-05] MEDS: Adenosine 6 MG/2 ML Syringe IV (04:15)
[2024-10-05] MEDS: Adenosine 6 MG/2 ML Syringe 12 MG IV (04:18)
[2024-10-05 04:51] LABS: Hemoglobin 11.3 g/dL (13.0-16.5); Mean Corp Hgb Conc 35.3 g/dL (32-36); Mean Corpuscular Hgb 30.9 pg (27.0-32.0); Mean Corpuscular Volume 87.4 fL (80-94); Mean Platelet Vol. 10.6 fl (6.2-12.0); Platelet Count 174 K/mm3 (150-450); RBC Distribution Width CV 14.8 % (11.6-14.6); RBC Distribution Width SD 47.6 fl (35.1-43.9); Red Blood Count 3.66 M/mm3 (4.6-6.2); White Blood Count 8.3 K/mm3 (4.4-11.0)
[2024-10-05] MEDS: Amiodarone 360 MG in Dextrose 5% Viaflo Bag 192.8 ML 33.3 MG CONT INF (04:53)
--- NOTE | 2024-10-05 05:01 | ECHOL_ITS ---
Reason For Study Reason For Study: ARRHYTHMIA Procedure This was a limited 2D transthoracic echocardiogram. The patient was scanned supine. Exam performed portable in ICU/CCU. Left Ventricle Normal left ventricle. The estimated ejection fraction is 50-55 %. Right Ventricle Normal right ventricle. Normal systolic function. MMode/2D Measurements & Calculations LVIDd: 5.0 cm IVSd: 1.1 cm LAV(MOD- bp): 62.7 ml LVIDs: 2.7 cm LVPWd: 1.1 cm LAV(MOD- bp) Indexed: 30.6 ml/m2 FS: 45.9 % LAV(MOD- sp2): 73.6 ml LAV(MOD- sp4): 47.3 ml LVAd ap2: 21.1 cm2 SV(MOD-sp2): 30.2 ml LA A4 area: 16.5 cm2 LVLd ap2: 6.6 cm SI(MOD-sp2): 14.8 ml/m2 EDV(MOD-sp2): 59.5 ml EDV(sp2-el): 57.6 ml LVAs ap2: 14.1 cm2 LVLs ap2: 5.9 cm ESV(MOD-sp2): 29.3 ml ESV(sp2-el): 28.6 ml EF(MOD-sp2): 50.8 % LA dimension(2D): 4.4 cm RA A4 area: 16.6 cm2 ECHO/Echo, Limited Study Interpretation Summary The estimated ejection fraction is 50-55 %. Patient is post Cardiac arrest Limited TTE with low-normal EF Ordering Physician: Chang Villanueva Referring Physician: OTD Performed By: Dolores Boyle, MACO, RVT
[2024-10-05] MEDS: Norepinephrine 8 MG in 0.9% Normal Saline (250mL Bag) 242 ML 37.5 MG CONT INF (05:02)
--- NOTE | 2024-10-05 05:03 | PCM.PN.BLA ---
Progress Note Notified by ICU nursing that patient was in what appeared appear to be SVT. He was given 6 mg and 12 mg of adenosine, when the rate slowed he did appear to be in more of a wide-complex tachycardia consistent with V. tach so he was given a 300 mg bolus of amiodarone which did convert him into normal sinus rhythm. He was then placed on an amiodarone drip. The amiodarone caused his blood pressure to drop so he had to increase his Levophed. He is maintaining saturations as best we can tell on BiPAP, his pulse oximetry is not reliable, his saturations on his ABGs earlier in the evening were normal on BiPAP. He is having some chest pain after his V. tach episode, troponins are pending. Will consult cardiology and obtain an echocardiogram in the morning.
--- NOTE | 2024-10-05 05:18 | NURSING ---
Approximately 0405 patient went into SVT. Adamaris paged at 0408 and 0410. EKG obtained and pads attached to patient. Adenosine 6mg given at 0415 upon arrival of Adamaris in patients room. Another dose of adenosine 12 mg given per verbal order from Adamaris at 0418. Adenosine unsuccessful therefore gave 300 mg amio bolus at 0435. Converted back to SR at 0437. Km ordered trop series, consulted cardiology, and morning labs drawn at this time as well. Tele-ICU consulted and spoke with this RN on the phone around 0500. Will consult via monitor around 0600.
[2024-10-05 05:42] LABS: Troponin T High Sensitivity 96 ng/L (<=22)
--- NOTE | 2024-10-05 06:04 | EKG12_ITS ---
Test Reason : code blue Blood Pressure : */* mmHG Vent. Rate : 130 BPM Atrial Rate : 113 BPM P-R Int : * ms QRS Dur : 130 ms QT Int : 464 ms P-R-T Axes : * -34 50 degrees QTcB Int : 682 ms Critical Test Result: Long QTc , STEMI AFIB WITH RVR Left axis deviation Non-specific intra-ventricular conduction block Anterolateral infarct , OLD Abnormal ECG When compared with ECG of 05-Oct-2024 07:05, MANUAL COMPARISON REQUIRED DATA IS UNCONFIRMED Confirmed by Leobardo Arguello ([id number]), desk editor PACO BLANCHARD ([id number]) on 10/10/2024 1:22:45 PM Referred By: Ivonne Confirmed By: Leobardo Arguello
--- NOTE | 2024-10-05 06:05 | EKG12_ITS ---
Test Reason : code blue Blood Pressure : */* mmHG Vent. Rate : 168 BPM Atrial Rate : 98 BPM P-R Int : * ms QRS Dur : 82 ms QT Int : 286 ms P-R-T Axes : * -44 202 degrees QTcB Int : 478 ms Critical Test Result: High HR , STEMI Abnormal ECG afib with rvr Left axis deviation Low voltage QRS Possible Lateral infarct , age undetermined Inferior infarct , age undetermined nsivc delay can not rule out old AMI Abnormal ECG When compared with ECG of 05-Oct-2024 04:30, MANUAL COMPARISON REQUIRED DATA IS UNCONFIRMED Confirmed by Leobardo Arguello ([id number]), loan expeditor PACO BLANCHARD ([id number]) on 10/10/2024 1:23:50 PM Referred By: Ivonne Confirmed By: Leobardo Arguello
--- NOTE | 2024-10-05 06:09 | CON.PCM.CC_ITS ---
HPI Consult Data Date of Consult: 10/05/24 HPI Narrative HPI Narrative: Mr. Bridger Yang is a 59-year-old male with a history of CAD (s/p CABG in August 2024), chronic pain syndrome, HFrEF (EF 40?45%), stroke, and daily opioid use, who presented to the ED after being found down at home for approximately 7 hours. He was last seen well around 2200 and was found face-down on the floor the next morning with left-sided weakness, dysarthria, and altered mental status. EMS activated a stroke alert. Initial CT brain and CTA head/neck were unremarkable. On ED presentation, the patient was hypothermic (92.6?F), encephalopathic, and borderline hypotensive despite receiving 3L IV fluids. Labs were notable for lactic acid 8.5, creatinine 3.61 (baseline 0.6), CPK >22,000, AST 2689, and procalcitonin 11.8, consistent with sepsis, rhabdomyolysis, and severe CHRISTINE. UA suggested UTI/pyelonephritis. CT chest/abd/pelvis showed bilateral renal inflammation, bladder wall thickening, and lung infiltrates, raising concern for aspiration pneumonia as well. In the ICU, he experienced an episode of SVT, treated with adenosine and amiodarone drip. He was started on vasopressors (Levo) and BiPAP, initially with some improvement, but later experienced worsening lethargy, persistent slurred speech, and oxygenation failure, prompting consideration for intubation. Narcan was administered twice due to possible opioid-related oversedation. Morphine had been held but was restarted. Patient is currently on BiPAP with likely intubation pending. [facility] Medical History Blepharitis, right eye Conjunctivitis, right eye Back pain Neck pain Stroke Home Medications ?Medication ?Instructions ?Recorded ?Last Taken ?Type clopidogrel 75 mg tablet (Plavix) 75 mg PO DAILY 12/1710/03/24 History aspirin 81 mg tablet 81 mg PO DAILY 10/04/24/11/02 History diazepam 5 mg tablet 5 mg PO QHS PRN PRN anxiety 10/04/24 10/03/24 History duloxetine 20 mg capsule,delayed 20 mg PO DAILY 10/03/24 History release ezetimibe 10 mg tablet 10 mg PO DAILY 10/04/24 05/2 11/02 History gabapentin 800 mg tablet 800 mg PO TID 10/04/2410/03 History hydrocodone 10 mg-acetaminophen 1 - 2 tab PO PRN PRN p ain 10/04/24 10/03/24 History 325 mg tablet isosorbide mononitrate 30 mg 30 mg PO DAILY 10/04/24 0 10/03/24 History tablet,extended release 24 hr metoprolol succinate 25 mg 25 mg PO DAILY 10/04/24 History tablet,extended release 24 hr morphine 30 mg tablet,extended 30 mg PO Q12.TCU 10/03/24 History release nitroglycerin 0.4 mg sublingual 0.4 mg sublingual Q5M angina 10/04/24 Unknown History tablet Allergy/AdvReac Type Severity Reaction Status Date / Time morphine Allergy Mild OTHER Verified 10/04/24 05:59 Social History Smoking Status: Current every day smoker tobacco type: cigarettes ROS ROS Narrative * Constitutional: Fatigue, weakness. No fever or chills reported. * Neurologic: Slurred speech, left-sided weakness, altered mental status. No headache reported. * Cardiovascular: SVT episode. No chest pain noted. * Respiratory: SOB requiring BiPAP, O2 sats in 80s?90s. No prior COPD or asthma. * GI: Mild abdominal pain on exam. Denies N/V. * : Dysuria reported prior to admission. * Skin: No new rashes or lesions. * MSK: Denies back pain. Diffuse muscle breakdown suspected due to rhabdomyolysis. Objective Data Objective Data Vital Signs: Vital Signs Last response 3 Temperature 36.6 C 10/05/24 04:53 Temperature Source Core 10/05/24 04:53 Pulse Rate 64 10/05/24 05:00 Respiratory Rate 22 H 10/05/24 05:00 Respiratory Effort Labored 10/05/24 02:00 Respiratory Depth Normal 10/05/24 02:00 Respiratory Pattern Tachypnea 10/05/24 03:54 Blood Pressure 99/74 10/05/24 05:30 Blood Pressure Mean 82 10/05/24 05:30 Blood Pressure Source Monitor 10/05/24 05:00 Blood Pressure Position Semi-Fowlers 10/04/24 16:00 Blood Pressure Location Left Arm 10/04/24 16:00 Pulse Ox 88 10/05/24 05:00 Oxygen Delivery Method Bi-pap 10/05/24 05:00 Oxygen Flow Rate (L/min) 10 10/04/24 19:08 Fraction of Inspired Oxygen (FIO2) 80 10/05/24 05:00 I&O: I&O Last 24 Hours 3 10/04/24 10/04/24 10/05/24 11:59 23:59 11:59 Intake Total 3336.25 / 5201.52 1846.47 / 5201.52 1183.89 / 1183.89 Output Total 1100 / 1150 50 / 1150 Balance 2236.25 / 4051.52 1796.47 / 4051.52 1183.89 / 1183.89 I&O: Total Stay 3 10/04/24 05:08 thru 10/05/24 05:30 Intake Total 6366.61 Output Total 1150 Balance 5216.61 Current Meds Ordered / Administered: Current meds ordered / Administered 3 Generic Name Dose Route Start Last Admin Trade Name Freq PRN Reason Stop Dose Admin Acetaminophen 650 mg 10/04/24 10:17 Acetaminophen 325 Mg Tablet PO Q6H PRN PRN Pain 1-10 Or Fever>100.7 Acetaminophen 650 mg 10/04/24 16:06 10/04/24 22:49 Acetaminophen 650 Mg Suppository RC 650 mg Q6H PRN PRN Administration Pain 1-10 or Fever Aspirin 81 mg 10/05/24 08:00 Aspirin 81 Mg Tab.Chew PO BREAKFAST [facility] Clopidogrel Bisulfate 75 mg 10/04/24 10:17 10/04/24 11:25 Clopidogrel Bisulfate 75 Mg Tablet PO Not Given DAILY AMANDA Diazepam 5 mg 10/04/24 13:49 Diazepam 5 Mg Tablet PO QHS PRN PRN anxiety Duloxetine HCl 20 mg 10/05/24 10:00 Duloxetine Hcl 20 Mg Capsule PO DAILY [facility] Gabapentin 400 mg 10/04/24 22:00 10/04/24 22:41 Gabapentin 400 Mg Capsule PO Not Given TID [facility] Heparin Sodium (Porcine) 5,000 unit 10/04/24 22:00 10/04/24 22:41 Heparin Injection (Vial) 5,000 Unit/Ml Vial SC 5,000 unit Q12 AMANDA Administration Vancomycin IV-PHARMACY TO DOSE 500 mls @ 250 mls/hr 10/04/24 10:17 1 each/ Sodium Chloride IV PRN PRN Rx to Dose Protocol Piperacillin Sod/Tazobactam 50 mls @ 12.5 mls/hr 10/04/24 14:00 10/05/24 02:40 Sod 3.375 gm/ Sodium Chloride IV Infused Q8 AMANDA Infusion Vancomycin HCl 750 mg/ Sodium 265 mls @ 250 mls/hr 10/05/24 08:00 Chloride IV Q24H AMANDA Norepinephrine Bitartrate 8 mg 250 mls @ 9.375 mls/hr 10/04/24 17:05 10/05/24 05:30 / Sodium Chloride CONT INF 20 mcg/min .[id number] AMANDA 37.5 mls/hr Titration Protocol 5 MCG/MIN Sodium Chloride 250 mls @ 15 mls/hr 10/04/24 21:41 10/04/24 22:41 IV 15 mls/hr .[id number] PRN Administration Saline Flush Sodium Chloride 250 mls @ 15 mls/hr 10/04/24 21:41 IV .[id number] PRN Additional IVPB Infusion Amiodarone HCl 360 mg/ 200 mls @ 33.333 mls/hr 10/05/24 04:45 10/05/24 04:53 Dextrose CONT INF 10/05/24 10:44 1 mg/min .Q6H AMANDA 33.3 mls/hr Administration 1 MG/MIN Amiodarone HCl 360 mg/ 200 mls @ 16.667 mls/hr 10/05/24 10:45 Dextrose CONT INF 10/06/24 04:44 .Q12H AMANDA 0.5 MG/MIN Morphine Sulfate 15 mg 10/04/24 22:00 10/04/24 22:41 Morphine Sr 15 Mg Tablet PO Not Given Q12 AMANDA Ondansetron HCl 4 mg 10/04/24 10:17 Ondansetron 4 Mg/2 Ml Vial IV Q8H PRN PRN NAUSEA/VOMITING Sodium Chloride 10 - 40 ml 10/04/24 10:49 10/05/24 04:17 0.9% Saline Lock 10 Ml Syringe IV 10 ml UD PRN Administration SALINE FLUSH Vancomycin Protocol 1 lab 10/06/24 06:30 Vancomycin Trough/Random Due MC 10/06/24 08:30 DAILY [facility] Physical Exam Narrative General: Obese, middle-aged male, appears ill and encephalopathic, A&O to person only. HEENT: Normocephalic, atraumatic, oropharynx clear, conjunctivae normal. Neck: Full ROM, no JVD or lymphadenopathy. Respiratory: Labored breathing; using BiPAP. Moderate respiratory distress. No rales/wheezing. Cardiovascular: Regular rhythm. No murmurs. Peripheral pulses 2+. Tachyarrhythmia earlier today. GI: Mild diffuse abdominal tenderness; soft, nondistended, normoactive bowel sounds. Neuro: Moves all extremities. Left-sided weakness present. Slurred speech. Lethargic. No focal cranial nerve deficit noted at this time. Skin: No rashes. Normal turgor. Extremities: No edema. No obvious trauma. Back/Spine: Normal alignment. No CVA tenderness noted. : Bynum catheter in place. Lab / Micro Data 10/05/24 04:45 10/04/24 13:35 Labs: Laboratory Results - last 24 hr 10/04/24 05:15: Differential Comment SCANNED, Platelet Estimate ADEQUATE, Polychromasia 1+, Anisocytosis 1+, Target Cells RARE, Tear Drop Cells 1+, Ovalocytes 1+, Acanthocytes (Spur) RARE, Procalcitonin 11.80 H 10/04/24 06:02: Urine Color Yellow, Urine Clarity Sl. Cloudy, Urine pH 6.0, Ur Specific [place] 1.020, Urine Protein 100 H, Urine Glucose (UA) Normal, Urine Ketones Negative, Urine Occult Blood 250 H, Urine Nitrite Negative, Urine Bilirubin Negative, Urine Urobilinogen Normal, Ur Leukocyte Esterase 500 H, Urine RBC 0-5 SEEN, Urine WBC 10-25 SEEN, Ur Squamous Epith Cells 0-5 SEEN, Urine Bacteria 4+, Urine Mucus 0 SEEN, Urine Opiates Screen PRESUMPTIVE POSITIVE, U Buprenorphine Qual NEGATIVE, Ur Oxycodone Screen NEGATIVE, Urine Methadone Screen NEGATIVE, Urine Fentanyl Screen NEGATIVE, Ur Barbiturates Screen NEGATIVE, Ur Phencyclidine Scrn NEGATIVE, Ur Amphetamines Screen NEGATIVE, U Benzodiazepines Scrn NEGATIVE, Urine Cocaine Screen NEGATIVE, U Cannabinoids Screen NEGATIVE 10/04/24 06:24: Lactic Acid 8.5 H* 10/04/24 11:15: Lactic Acid 3.3 H* 10/04/24 13:35: Sodium 128 L, Potassium 4.9, Chloride 88 L, Carbon Dioxide 18.2 L, Anion Gap 23 H, BUN 72 H, Creatinine 3.48 H, Estim Creat Clear Calc 24.64 L, Est GFR (MDRD) Non-Af 19 L, BUN/Creatinine Ratio 20.7 H, Glucose 122 H, Calcium 6.5 L* 10/04/24 17:10: POC Glucose 90 10/05/24 04:45: WBC 8.3, RBC 3.66 L, Hgb 11.3 L, Hct 32.0 L, MCV 87.4 D, MCH 30.9, MCHC 35.3 D, RDW Std Deviation 47.6 H, RDW Coeff of Deepa 14.8 H, Plt Count 174, MPV 10.6, Troponin T High Sens 96 H* D Micro: Microbiology 10/04/24 06:24 Blood Culture (Wb) - Anticubital Right Blood Culture - Preliminary ABG Data ABG results: ABG 10/04/24 10/04/24 10/04/24 06:32 19:27 19:45 Specimen Type JOSE JOSE ART Sample Site Not entered Not entered R Fem pH 7.37 Bicarbonate Actual 13.8 L Total CO2 15 Base Excess -12 L O2 Saturation 95 O2 % 6.0 40.0 ABG pCO2 24.1 L ABG pO2 78 Zachariah Test Positive VBG pH 7.20 L 7.38 VBG pO2 43 H 34 VBG HCO3 15 L 16 L VBG Total CO2 17 L 17 L VBG O2 Sat (Calc) 68 65 VBG Base Excess -13 L -9 L POC Mix VBG pCO2 Pt Tmp 39.5 L 27.0 L Respiration Rate 16 O2 Delivery Device Not entered Cannula BiPAP Vent Mode Not entered Crit Call To/Read Back Yes Blood Gas Notified Time 06:34:07 Clinical Comments 16 10 10/05/24 00:22 Specimen Type ART Sample Site R Fem pH 7.29 L Bicarbonate Actual 16.4 L Total CO2 17 Base Excess -10 L O2 Saturation 94 L O2 % 65.0 ABG pCO2 33.9 L ABG pO2 77 Zachariah Test Positive VBG pH VBG pO2 VBG HCO3 VBG Total CO2 VBG O2 Sat (Calc) VBG Base Excess POC Mix VBG pCO2 Pt Tmp Respiration Rate 14 O2 Delivery Device BiPAP Vent Mode Not entered Crit Call To/Read Back Blood Gas Notified Time Clinical Comments 16 10 Imaging Radiology Impression Chest X-Ray 10/04/24 06:10 IMPRESSION: Patchy airspace opacity at the left mid to lower lung. Mild patchy opacity at the medial right base. May be inflammatory or infectious. Platelike area of atelectasis right midlung. Band of opacity at the medial right upper lung may represent area of collapse, atelectasis. Reading Location: [facility] Pelvis X-Ray 10/04/24 06:10 IMPRESSION: No fracture or dislocation. Reading Location: [facility] Chest/Abdomen/Pelvis CT 10/04/24 10:07 IMPRESSION: Patchy infiltrate in the lingular segment of the left upper lobe as well as the medial aspect of the right middle lobe with atelectasis at the lung bases. Small gallstones or sludge seen along the gallbladder lumen. Abnormal appearance of both kidneys worse on the left side. Findings suggestive of bilateral pyelonephritis versus possible areas of decreased vascularity/infarcts. The left kidney is larger than the right. Diffuse bladder wall thickening. A Bynum catheter is seen within the decompressed urinary bladder. Reading Location: [facility] Assessment and Plan . Assessment and plan: Assessment and Plan: 1. Sepsis seoncdary to suspected UTI/pyelonephritis and aspiration pneumonia * Blood and urine cultures pending * IV vancomycin + Zosyn * Continue aggressive IV fluids (LR) * On norepinephrine to maintain MAP >65 * Monitor lactate, vitals, WBC, and cultures 2. Acute Toxic Encephalopathy: * Likely multifactorial: uremia, morphine/gabapentin toxicity, sepsis * Held/reduced [employer] depressants * Administered Narcan x2 * Will likely need to intubate for airway protection if BiPAP fails * Neurology aware; monitor closely 3. Severe CHRISTINE: * Cr 3.61, GFR ~19 * Likely from sepsis and rhabdomyolysis * Bynum placed, strict I/Os * Hold nephrotoxic agents * Nephrology consult if worsening 4. Rhabdomyolysis: * CPK >22,000 * Aggressive IV hydration * Monitor CPK daily * Monitor for electrolyte derangements and compartment syndrome 5. SVT and Cardiac History (s/p CABG, HFrEF): * SVT treated with adenosine, now on Amiodarone drip * Cardiology consulted * Monitor telemetry * Continue aspirin and Plavix * Hold beta blockers due to hypotension 6. Respiratory Failure * Currently on BiPAP * Desaturation and worsening encephalopathy , will likely need intubation * Monitor ABG/VBG closely * Consider speech eval post-extubation 7. Chronic Pain Management: * Previously on morphine and hydrocodone/APAP * Pain control challenging due to renal failure * Resume duloxetine, minimize opioids * Monitor for oversedation 8. DVT Prophylaxis: * Heparin SQ BID Critical Care Time:60 mins The entirety of this encounter was done via Telemedicine
[2024-10-05 06:14] LABS: Magnesium 3.6 mg/dL (1.5-2.2)
[2024-10-05] MEDS: Piperacil/Tazobactam 3.375 GM in 0.9% Normal Saline (50mL MB+) 50 ML IV ×3 (06:20→20:30)
[2024-10-05 06:44] LABS: AST(SGOT) 3047 U/L (<=37); Alanine Aminotransfer ALT/SGPT 795 U/L (<=46); Albumin, Serum 2.5 g/dL (3.5-5.0); Alkaline Phosphatase 257 U/L (40-129); Anion Gap 28 (5-15); BUN 89 mg/dL (4-19); BUN/Creat Ratio 17.9 RATIO (10-20); Calcium,Total 5.7 mg/dL (7.6-11.0); Carbon Dioxide 11.5 mmol/L (21.0-32.0); Chloride 89 mmol/L (98-108); Creatinine, Serum 4.97 mg/dL (0.70-1.20); EST Glomerular Filtration Rate 13 (>60); Estimated Creatinine Clearance 17.45 ml/min (50-250); Globulin 3.2 g/dL (2.2-4.2); Glucose 135 mg/dL (70-99); Potassium 7.1 mmol/L (3.3-5.1); Protein, Total 5.7 g/dL (5.9-8.4); Sodium Level 128 mmol/L (133-145); Total Bilirubin 0.87 mg/dL (0.00-1.30)
[2024-10-05] MEDS: 0.9% Normal Saline (1000mL) 1,000 ML 999 ML IV (07:00)
[2024-10-05] MEDS: Insulin Lispro 100 UNIT/ML VIAL (ADMELOG) 10 UNIT IV (07:00)
--- NOTE | 2024-10-05 07:13 | NURSING ---
0630 preparing for Intubation, Kay Mills in room. JERMAIN Aponte notifying family 0631 propofol 10 mg IV given 0632 no pulse, CPR started see code record
[2024-10-05 07:21] LABS: CPK Total, Creatine Kinase > 22000 U/L (24-195)
[2024-10-05 07:33] LABS: Base Excess -23 mmol/L (-2 to +2); Bicarbonate 9.2 mmol/L (22-26); Blood Gas Specimen Type ART; Mode AC; O2 Delivery Device Adult Vent; PEEP 5; PO2 116 mmHG (75-100); RR 16; SITE L Fem; SO2 95 % (95-99); Total Carbon Dioxide 11 mmol/L; pCO2 40.6 mmHg (35-45); pH 6.97 (7.35-7.45)
--- NOTE | 2024-10-05 07:45 | NURSING ---
ROSC obtained 0643- see code documentation 0658 Dr. Villanueva spoke with Dr. Yang via phone 0710 EKG completed, stat ionized calcium sent, ABG obtained 0730 bedside echo completed
--- NOTE | 2024-10-05 07:49 | PN_ITS ---
Progress Note Intubation Indication: Rhabdomyolysis with respiratory failure Consent was obtained from: Emergent The patient was placed in the appropriate sniffing position. Preoxygenated sedation via BiPAP was provided for a minimum of 3 minutes. The patient had continuous cardiac as well as pulse oximetry monitoring during the procedure. P rocedure sedation was provided by the administration of 10 mg of propofol. Direct laryngoscopy was then performed using a number 4 glide scope blade, which revealed a grade 1 view. A 7.5 mm endotracheal tube was visualized advancing between the cords to the level of 23 cm at the lip. The stylette was then removed and discarded. Tube placement was confirmed by fogging in the tube along with equal and bilateral breath sounds. Colorimetric change was visualized on the CO2 meter. The cuff was then inflated and the tube secured using a commercially available device. A good pulse oximetry waveform was seen on the monitor throughout the procedure. A portable chest x-ray has been ordered to confirm appropriate placement. The patient tolerated the procedure well. Procedures Hospitalists Procedures: [id number] Insert Emergency Airway
--- NOTE | 2024-10-05 07:51 | PCM.CODE.SUM ---
Code Blue Report Code Blue Summary Code Blue Summary: 59-year-old male presented to the hospital with UTI and gram-negative bacteremia as well as rhabdomyolysis. Overnight he went into V. tach which was responsive initially to an amiodarone bolus of 300 mg and then he was placed on an amiodarone drip. At this time it was requested that ICU evaluate the patient around 4:30 in the morning and at 6:20 AM I was notified of the intent to intubate so I went to the PACU and in preparing to intubate once the sedation was pushed he lost his pulse. I was able to intubate and then we are immediately starting CPR. He had several rounds of CPR including 2 doses of epinephrine. He was also given 2 A of bicarb and started on normal saline bolus. We were able to recover his pulse and it was V. tach so he was shocked initially at 200 J with no success so that he was shocked at 300 J with no success and then at 360 J with no success. He was given another bolus of 150 mg of amiodarone and continued on the amiodarone drip as well as Levophed. He was noticed on morning labs that his calcium was critically low she was also given 2 g of calcium chloride and with his potassium being elevated at 7.1, he was given D50 and 10 units of insulin. Nephrology was consulted at this point given his hyperkalemia and renal failure. His pressure did respond and he did become more responsive. Repeat ABG demonstrated pH of 6.9 with a bicarb of 9.2 so he was placed on a bicarb drip and care was transferred to the [facility], [place] journalists and other writers. It was attempted to notify family and they hung up the phone as they were on their way into the hospital.
[2024-10-05 07:52] LABS: Ionized Calcium 1.18 mmol/L (1.09-1.30)
[2024-10-05] MEDS: Vasopressin 20 UNITS in 0.9% Normal Saline (50mL Bag) 24 ML 3 UNITS CONT INF ×3 (08:23→22:40)
[2024-10-05] MEDS: Sodium Bicarbonate 150 MEQ in Dextrose 5%-Water (1000mL Bag) 1,000 ML IV ×3 (08:28→23:24)
[2024-10-05] MEDS: fentaNYL drip 100 ML 5 MCG CONT INF (08:28)
--- NOTE | 2024-10-05 08:28 | EX.PCM.CONCC ---
Assessment & Plan Assessment/Plan (1) Septic shock: (2) Acute kidney injury: (3) Rhabdomyolysis: PLAN: Plan RECOMMENDATIONS: 1. Continue assist-control mode mechanical ventilation with serial ABG monitoring, as indicated. 2. Continue empiric broad-spectrum antimicrobials. 3. Continue Levophed, vasopressin and Michael-Synephrine. 4. Initiate hydrocortisone 50 mg every 6 hours. 5. Initiate CRRT per nephrology. Continue sodium bicarbonate infusion until dialysis has been initiated. 6. Repeat CMP this morning. Repeat coagulation profile. 7. Obtain limited echocardiogram and continue amiodarone for now. 8. Continue appropriate ICU prophylaxis. IMPRESSIONS: 1. Gram-negative septic shock with multisystem organ failure Clinical concern for both underlying pneumonia and genitourinary source of infection, with evidence of gram-negative bacteremia. The patient is in refractory septic shock with significant vasopressor requirement and multisystem organ failure. The patient will be continued on broad-spectrum antimicrobials along with Levophed, vasopressin and Michael-Synephrine in an attempt to maintain mean arterial pressure at or above 65 mmHg. In addition, stress dose steroids have been initiated. 2. Acute kidney injury Most likely multifactorial in etiology with prerenal azotemia from sepsis coupled with rhabdomyolysis contributing. Continue judicious IV fluid resuscitation with sodium bicarbonate infusion, until CRRT can be initiated. Obtain follow-up ABG once dialysis has been started. 3. Ischemic hepatitis Related to generalized hypoperfusion in the setting of gram-negative septic shock. Continue supportive measures as noted above. Continue to monitor liver function profile and coags. 4. Acute hypoxemic respiratory failure There is concern for underlying aspiration pneumonia leading to respiratory failure and need for intubation. The patient will be maintained on assist-control mode of mechanical ventilation, with a goal to wean FiO2 and PEEP to maintain saturations at or above 90%. Empiric broad-spectrum antimicrobials have been initiated. 5. Toxic/metabolic encephalopathy Most likely secondary to presenting septic shock with profound metabolic derangements. CT head demonstrated no acute intracranial findings. 6. History of coronary artery disease status post recent CABG/SVT/chronic alcohol and tobacco dependency Complicates care, management, recovery and prognosis. Continue supportive measures as noted above. CODE STATUS: Full code (I did personally discuss goals of care and prognosis with the patient's . I did advocate that she consider a transition to DNR CCA. At the present time, the patient would like to discuss my recommendations with the family prior to committing to a change in his CODE STATUS. TIME: 83 minutes of critical care time, independent of procedures, was spent addressing the patient's gram-negative septic shock with multisystem organ failure, acute hypoxemic respiratory failure, toxic/metabolic encephalopathy, review of all data and collaboration with the care team. HPI Consult Data Date of Consult: 10/05/24 HPI Narrative Reason for Consultation: Septic shock HPI Narrative: The patient is a 59-year-old male, with a history as outlined below, who presented to the emergency department on October 04 after being found down with left-sided weakness and dysarthria. History pertinent to the patient's hospitalization was obtained primarily via the patient's . She indicated that the patient is an alcoholic and smokes cigarettes daily. She reported that he drank heavily on Thursday and subsequently passed out on the floor. The next morning, on several occasions, she attempted to get him off the floor and into bed. The patient refused to move. He continued to lay on the floor until Thursday, when his contacted EMS for assistance. She also reported that the patient underwent a CABG last month at [facility]. On presentation to the emergency department, the patient was noted to be hypothermic and tachypneic, but was otherwise hemodynamically stable on presentation. His initial laboratory evaluation revealed a white blood cell count of 13,000. Hemoglobin and platelet count were stable. Chemistry profile was notable for a sodium of 125, potassium of 5.5, chloride of 77, bicarbonate of 11, BUN of 62 and creatinine of 3.6. Lactate was elevated at 8.5. AST and ALT were increased to 2000 689 and 716, respectively. CK was elevated to greater than 22,000. Procalcitonin was increased at 11.8. Urinalysis was positive for leukocyte esterase and 4+ urine bacteria. Toxicology screen was positive for opiates. Head CT demonstrated no intracranial findings. A CT chest/abdomen/pelvis was subsequently obtained, which demonstrated an infiltrate in the left upper lobe along with the medial aspect of the right middle lobe along with findings concerning for bilateral pyelonephritis. The patient was initially managed with supplemental IV fluids and was placed on antimicrobial therapy. The patient was subsequently admitted to the medical intensive care unit for further management. Overnight, the patient decompensated clinically with progressive hypotension, which required the initiation of vasopressor support. He developed worsening lethargy with refractory hypoxemia and was subsequently intubated. Early this morning, the patient developed SVT, which was treated with adenosine. The patient was subsequently placed on an amiodarone infusion. He is currently in refractory septic shock with multisystem organ failure. Upon my arrival, an emergent temporary hemodialysis catheter was placed along with arterial line. [facility] Medical History (Updated 10/05/24 @ 10:[address] Juanito Yang, DO) Acute kidney injury Blepharitis, right eye Conjunctivitis, right eye Back pain Neck pain Stroke Home Medications ?Medication ?Instructions ?Recorded ?Last Taken ?Type clopidogrel 75 mg tablet (Plavix) 75 mg PO DAILY 12/17/22 10/03/24 History aspirin 81 mg tablet 81 mg PO DAILY 10/04/24 10/03/24 History diazepam 5 mg tablet 5 mg PO QHS PRN PRN anxiety 10/04/24 10/03/24 History duloxetine 20 mg capsule,delayed 20 mg PO DAILY 10/04/24 10/03/24 History release ezetimibe 10 mg tablet 10 mg PO DAILY 10/04/24 10/03/24 History gabapentin 800 mg tablet 800 mg PO TID 10/04/24 10/03/24 History hydrocodone 10 mg-acetaminophen 1 - 2 tab PO PRN PRN pain 10/04/24 10/03/24 History 325 mg tablet isosorbide mononitrate 30 mg 30 mg PO DAILY 10/04/24 10/03/24 History tablet,extended release 24 hr metoprolol succinate 25 mg 25 mg PO DAILY 10/04/24 10/03/24 History tablet,extended release 24 hr morphine 30 mg tablet,extended 30 mg PO Q12.TCU 10/04/24 10/03/24 History release nitroglycerin 0.4 mg sublingual 0.4 mg sublingual Q5M angina 10/04/24 Unknown History tablet Allergy/AdvReac Type Severity Reaction Status Date / Time morphine Allergy Mild OTHER Verified 10/04/24 05:59 Social History Smoking Status: Current every day smoker tobacco type: cigarettes ROS Review of Systems ROS Unobtainable: due to endotracheal tube Physical Exam Const Constitutional Narrative: Intubated and mechanically ventilated. General Appearance: lethargic, ill appearing and patient mechanically ventilated HEENT normocephalic and head/scalp atraumatic Mouth: endotracheal tube in place Eyes PERRL and EOMs intact bilaterally Neck supple General: trachea midline and CVC in place Resp Effort and Inspection: tachypneic Auscultation: diminished lung sounds Cardio S1 normal heart sound and S2 normal heart sound Rate: tachycardic GI soft to palpation and non-tender Extremity Extremity Narrative: Extremities are mottled in appearance. General Extremity: Negative for edema Skin General Skin Exam: mottling Neuro Sensorium / Orientation: sedated on vent Lab / Micro Data 10/05/24 04:45 10/05/24 09:40 Labs: Laboratory Results - last 24 hr 10/04/24 11:15: Lactic Acid 3.3 H* 10/04/24 13:35: Sodium 128 L, Potassium 4.9, Chloride 88 L, Carbon Dioxide 18.2 L, Anion Gap 23 H, BUN 72 H, Creatinine 3.48 H, Estim Creat Clear Calc 24.64 L, Est GFR (MDRD) Non-Af 19 L, BUN/Creatinine Ratio 20.7 H, Glucose 122 H, Calcium 6.5 L* 10/04/24 17:10: POC Glucose 90 10/05/24 04:45: WBC 8.3, RBC 3.66 L, Hgb 11.3 L, Hct 32.0 L, MCV 87.4 D, MCH 30.9, MCHC 35.3 D, RDW Std Deviation 47.6 H, RDW Coeff of Deepa 14.8 H, Plt Count 174, MPV 10.6, Sodium 128 L, Potassium 7.1 H*, Chloride 89 L, Carbon Dioxide 11.5 L, Anion Gap 28 H, BUN 89 H, Creatinine 4.97 H, Estim Creat Clear Calc 17.45 L, Est GFR (MDRD) Non-Af 13 L, BUN/Creatinine Ratio 17.9, Glucose 135 H, Calcium 5.7 L*, Magnesium 3.6 H, Total Bilirubin 0.87, Direct Bilirubin 0.60 H, AST 3047 H, ALT 795 H, Alkaline Phosphatase 257 H, Total Creatine Kinase > 53700 H, Troponin T High Sens 96 H* D, Total Protein 5.7 L, Albumin 2.5 L, Globulin 3.2 10/05/24 07:02: Ionized Calcium 1.18 Micro: Microbiology 10/04/24 06:24 Blood Culture (Wb) - Anticubital Right Blood Culture - Preliminary ABG Data ABG results: ABG 10/04/24 10/04/24 10/05/24 19:27 19:45 00:22 Specimen Type JOSE ART ART Sample Site Not entered R Fem R Fem pH 7.37 7.29 L Bicarbonate Actual 13.8 L 16.4 L Total CO2 15 17 Base Excess -12 L -10 L O2 Saturation 95 94 L O2 % 6.0 40.0 65.0 ABG pCO2 24.1 L 33.9 L ABG pO2 78 77 Zachariah Test Positive Positive VBG pH 7.38 VBG pO2 34 VBG HCO3 16 L VBG Total CO2 17 L VBG O2 Sat (Calc) 65 VBG Base Excess -9 L POC Mix VBG pCO2 Pt Tmp 27.0 L Respiration Rate 16 14 O2 Delivery Device Cannula BiPAP BiPAP Vent Mode Not entered Not entered Tidal Volume POC PEEP Crit Call To/Read Back Blood Gas Notified Whom Blood Gas Notified Time Clinical Comments 16 10 16 10 10/05/24 07:28 Specimen Type ART Sample Site L Fem pH 6.97 L* Bicarbonate Actual 9.2 L Total CO2 11 Base Excess -23 L O2 Saturation 95 O2 % 100.0 ABG pCO2 40.6 ABG pO2 116 H Zachariah Test VBG pH VBG pO2 VBG HCO3 VBG Total CO2 VBG O2 Sat (Calc) VBG Base Excess POC Mix VBG pCO2 Pt Tmp Respiration Rate 16 O2 Delivery Device Adult Vent Vent Mode AC Tidal Volume 450.0 POC PEEP 5 Crit Call To/Read Back Yes Blood Gas Notified Whom brown Blood Gas Notified Time 07:29:40 Clinical Comments Imaging Radiology Impression Chest/Abdomen/Pelvis CT 10/04/24 10:07 IMPRESSION: Patchy infiltrate in the lingular segment of the left upper lobe as well as the medial aspect of the right middle lobe with atelectasis at the lung bases. Small gallstones or sludge seen along the gallbladder lumen. Abnormal appearance of both kidneys worse on the left side. Findings suggestive of bilateral pyelonephritis versus possible areas of decreased vascularity/infarcts. The left kidney is larger than the right. Diffuse bladder wall thickening. A Bynum catheter is seen within the decompressed urinary bladder. Reading Location: [place] [address] Charges/Coding Procedures Hospitalists Procedures: 44392 Critical Care 1st Hr Multi Select Codes Hospitalists' Procedures Procedures: 04500 Critical Care Addl 30 Min
--- NOTE | 2024-10-05 08:28 | PCM.OP.PRO2 ---
Procedures Hospitalists Procedures: 72652 Insert Non-tunnel CV Cath Non-invasive Procedural Procedure Information Date of Procedure: 10/05/24 Description of procedure: Temporary Hemodialysis Catheter Indication: CHRISTINE Consent was obtained from: Procedure was done emergently A time-out was completed verifying correct patient, procedure, site, positioning, and special equipment if applicable. The patient was placed in a dependent position appropriate for hemodialysis line placement based on the vein to be cannulated. The patient's right neck was prepped and draped in the sterile fashion. 1% Lidocaine was used and emphasized the surrounding skin area. A 16 cm catheter was introduced into the right internal jugular vein, following sequential dilations, using the Seldinger technique and under ultrasound guidance. The catheter was threaded smoothly over the guidewire and appropriate blood return was obtained. Each lumen of the catheter was evacuated of air and flushed with sterile saline. The catheter was then sutured in place to the skin and a sterile dressing applied. Chest x-ray to confirm appropriate positioning is pending. ULTRASOUND GUIDANCE STATEMENT (Vascular Access): I performed an ultrasound image acquisition and interpretation for needle placement during the procedure. The vessel was identified and was found to be free of thrombosis by compression technique. A safe point of entry was marked at the skin in an angle for axis was determined. The needle was guided by obtaining free-flowing fluid and by real-time visualization.
--- NOTE | 2024-10-05 08:29 | PRO.PCM_ITS ---
Procedures Hospitalists Procedures: [id number] Insertion Catheter Artery Non-invasive Procedural Procedure Information Date of Procedure: 10/05/24 Description of procedure: Arterial Line Indication: Septic shock Consent was obtained from: Procedure was done emergently A time-out was completed verifying correct patient, procedure, site, positioning, and special equipment if applicable. Zachariah's test was performed to ensure adequate perfusion. The patient's left wrist was prepped and draped in the sterile fashion. 1% lidocaine was used to anesthetize the area. An 18- gauge arrow arterial line was introduced into the radial artery. The catheter was threaded over the guidewire and the needle was removed with the appropriate pulsatile blood return. The catheter was then sutured in place to the skin and a sterile dressing applied. Perfusion to the extremity distal to the point of catheter insertion was checked and found to be adequate. ULTRASOUND GUIDANCE STATEMENT (Vascular Access): I perform ultrasound image ac quisition and interpretation for needle placement during this procedure. The vessel was identified and found to be free of thrombosis by compression technique. A safe point of entry was marked at the skin and then angle for access was determined. The needle was guided by obtaining free-flowing fluid and by real-time visualization.
[2024-10-05] MEDS: fentaNYL 100 MCG/2 ML Ampul IV (08:30)
[2024-10-05 08:43] LABS: Troponin T High Sens 2 HR 85 ng/L (<=22)
--- NOTE | 2024-10-05 08:55 | RAD_ITS ---
PROCEDURE: CHEST 1 VIEW (PORTABLE) 10/05/2024 REASON FOR EXAM: ET AND TEMP DIALYSIS LINE PLACEMENT TECHNIQUE: Frontal view of the chest. COMPARISON: October 04, 2024, 6:17 FINDINGS: There is an ET tube in position, 2 cm above the level of the kaushik. There is a PICC line on the right with its tip in the superior vena cava at the right atrium. There is a central line on the right with its tip in the superior vena cava. Sternotomy wires are noted. There is cardiomegaly with central vascular congestion. There is blunting of the costophrenic angle on the left consistent with a small effusion. There is no visible pneumothorax. There is no acute bony abnormality. RAD/Chest 1 View (Portable) IMPRESSION: Tubes and lines in position. There is cardiomegaly with central vascular congestion. There is blunting of the costophrenic angle on the left consistent with a small effusion. Reading Location: [facility]
[2024-10-05] MEDS: Phenylephrine 10 MG in 0.9% Normal Saline (250mL Bag) 249 ML 15 MG CONT INF (09:27)
[2024-10-05] MEDS: Norepinephrine 8 MG in 0.9% Normal Saline (250mL Bag) 242 ML 56.3 MG CONT INF ×3 (09:29→23:24)
[2024-10-05] MEDS: dexMEDEtomidine 400 MCG in 0.9% Normal Saline (100mL Bag) 96 ML 11.7 MCG CONT INF ×2 (09:30→16:36)
--- NOTE | 2024-10-05 10:17 | CASEMGMT ---
JERMAIN FIGUEROA NOTE: Pt went into VT this AM and Code Blue called and ROSC obtained. Pt is currently intubated. Assessment deferred at this time. Gilda TYLERN JERMAIN CM
[2024-10-05] MEDS: Amiodarone 360 MG in Dextrose 5% Viaflo Bag 192.8 ML 16.7 MG CONT INF ×2 (10:23→22:40)
[2024-10-05 10:30] LABS: Troponin T High Sens 4 HR 94 ng/L (<=22)
[2024-10-05] MEDS: PUREFLOW B SOLUTION 2K 5,000 ML BAG 9 BAG PF ×3 (10:53→23:39)
--- NOTE | 2024-10-05 11:15 | PCM.PN.HOSP ---
Reason for Visit Reason for Visit: Diagnoses Sepsis, unspecified organism (10/04/24) Acidosis, unspecified (10/04/24) Rhabdomyolysis (10/04/24) Acute pyelonephritis (10/04/24) Acute kidney failure, unspecified (10/04/24) Subjective Subjective Saw patient at bedside this morning, Dr. Yang also present. Patient with significant events overnight, see quick note for further details. Patient now intubated and sedated, not following commands. Discussed with patient's at the bedside as well and goals of care discussions will be ongoing. Objective Data Objective Data Vital Signs: Vital Signs Temp Pulse Resp BP Pulse Ox O2 Del Method O2 Flow Rate 97.8 F 106 H 29 H 109/65 82 Mechanical Ventilator 10 10/05/24 04:53 10/05/24 08:00 10/05/24 08:00 10/05/24 08:00 10/05/24 07:00 10/05/24 08:00 10/04/24 19:08 FiO2 100 10/05/24 08:00 Oxygen Flow Rate (L/min) 10 Oxygen Delivery Method Mechanical Ventilator Weight: 93.6 kg Body Mass Index (BMI) 32.3 Intake & Output: Intake and Output for Last 24 Hours 10/03/24 10/04/24 10/05/24 23:59 23:59 23:59 Intake Total 5182.72 / 5201.52 1391.75 / 1391.75 Output Total 1150 / 1150 Balance 4032.72 / 4051.52 1391.75 / 1391.75 Lab / Micro Data 10/05/24 04:45 10/05/24 09:40 Labs: Laboratory Results - last 24 hr 10/04/24 11:15: Lactic Acid 3.3 H* 10/04/24 13:35: Sodium 128 L, Potassium 4.9, Chloride 88 L, Carbon Dioxide 18.2 L, Anion Gap 23 H, BUN 72 H, Creatinine 3.48 H, Estim Creat Clear Calc 24.64 L, Est GFR (MDRD) Non-Af 19 L, BUN/Creatinine Ratio 20.7 H, Glucose 122 H, Calcium 6.5 L* 10/04/24 17:10: POC Glucose 90 10/05/24 04:45: WBC 8.3, RBC 3.66 L, Hgb 11.3 L, Hct 32.0 L, MCV 87.4 D, MCH 30.9, MCHC 35.3 D, RDW Std Deviation 47.6 H, RDW Coeff of Deepa 14.8 H, Plt Count 174, MPV 10.6, Sodium 128 L, Potassium 7.1 H*, Chloride 89 L, Carbon Dioxide 11.5 L, Anion Gap 28 H, BUN 89 H, Creatinine 4.97 H, Estim Creat Clear Calc 17.45 L, Est GFR (MDRD) Non-Af 13 L, BUN/Creatinine Ratio 17.9, Glucose 135 H, Calcium 5.7 L*, Magnesium 3.6 H, Total Bilirubin 0.87, Direct Bilirubin 0.60 H, AST 3047 H, ALT 795 H, Alkaline Phosphatase 257 H, Total Creatine Kinase > 59216 H, Troponin T High Sens 96 H* D, Total Protein 5.7 L, Albumin 2.5 L, Globulin 3.2 10/05/24 07:02: Ionized Calcium 1.18, Troponin T Hi Sens 2 Hr 85 H* 10/05/24 09:40: Troponin T Hi Sens 4Hr 94 H* Micro: Microbiology 10/04/24 06:24 Blood Culture (Wb) - Anticubital Right Blood Culture - Preliminary Gram negative patrick ABG Data ABG results: ABG 10/04/24 10/04/24 10/05/24 19:27 19:45 00:22 Specimen Type JOSE ART ART Sample Site Not entered R Fem R Fem pH 7.37 7.29 L Bicarbonate Actual 13.8 L 16.4 L Total CO2 15 17 Base Excess -12 L -10 L O2 Saturation 95 94 L O2 % 6.0 40.0 65.0 ABG pCO2 24.1 L 33.9 L ABG pO2 78 77 Zachariah Test Positive Positive VBG pH 7.38 VBG pO2 34 VBG HCO3 16 L VBG Total CO2 17 L VBG O2 Sat (Calc) 65 VBG Base Excess -9 L POC Mix VBG pCO2 Pt Tmp 27.0 L Respiration Rate 16 14 O2 Delivery Device Cannula BiPAP BiPAP Vent Mode Not entered Not entered Tidal Volume POC PEEP Crit Call To/Read Back Blood Gas Notified Whom Blood Gas Notified Time Clinical Comments 16 10 16 10 10/05/24 07:28 Specimen Type ART Sample Site L Fem pH 6.97 L* Bicarbonate Actual 9.2 L Total CO2 11 Base Excess -23 L O2 Saturation 95 O2 % 100.0 ABG pCO2 40.6 ABG pO2 116 H Zachariah Test VBG pH VBG pO2 VBG HCO3 VBG Total CO2 VBG O2 Sat (Calc) VBG Base Excess POC Mix VBG pCO2 Pt Tmp Respiration Rate 16 O2 Delivery Device Adult Vent Vent Mode AC Tidal Volume 450.0 POC PEEP 5 Crit Call To/Read Back Yes Blood Gas Notified Whom brown Blood Gas Notified Time 07:29:40 Clinical Comments Radiography Diagnostic Testing: Radiology Impression Chest X-Ray 10/05/24 08:55 IMPRESSION: Tubes and lines in position. There is cardiomegaly with central vascular congestion. There is blunting of the costophrenic angle on the left consistent with a small effusion. Reading Location: [facility] Physical Exam Const Constitutional Narrative: Intubated and sedated, not following commands. Upper middle-aged male, class I obesity, lethargic and ill-appearing. HEENT normocephalic, head/scalp atraumatic and nasal mucous membranes and turbinates normal HEENT Narrative: ET tube in place. Neck Neck Narrative: CVC line in place. Chest inspection of chest normal Resp normal respiratory effort and no use of accessory muscles Resp Narrative: Diminished breath sounds noted bilaterally throughout. Cardio no murmurs and peripheral pulses 2+ throughout Cardio Narrative: Tachycardic, regular rhythm. GI soft to palpation and non-distended Extremity Extremity Narrative: Extremities mottled in appearance. No edema noted. Assessment & Plan Assessment/Plan (1) Sepsis: (2) Acute pyelonephritis: (3) Acute kidney injury: (4) Metabolic acidosis: (5) Rhabdomyolysis: PLAN: Plan Patient is a 59-year-old male who presented to [facility] ED on 10/04/2024 with worsening weakness and slurred speech. 1. Septic shock secondary to gram-negative bacteremia presumed due to acute pyelonephritis with multisystem organ failure, concern for aspiration pneumonia ? [facility] [employer] following. Met sepsis criteria on admit with lactic acidosis, encephalopathy, severe CHRISTINE, fevers, hypotension and suspected urinary source versus aspiration pneumonia. CT chest abdomen pelvis without contrast showed findings suggestive of bilateral pyelonephritis as well as diffuse bladder wall thickening; also showed patchy infiltrates in the left upper lobe and right middle lobes. UA with 500 leukocyte esterase, negative nitrates but 4+ bacteria. Treated with 30 cc/kg plus additional IV fluids for rhabdomyolysis with continued hypotension requiring pressor medications. Blood cultures 2 out of 2 positive for gram-negative bacteria. Currently treating with Levophed, vasopressin, Michael-Synephrine and stress dose steroids to maintain MAP greater than 65. Continue IV vancomycin and Zosyn. Patient unfortunately with multisystem organ failure including respiratory failure, kidney failure and liver failure is at a below. Prognosis guarded, goals of care discussion with family ongoing. 2. Acute respiratory failure ? [facility] [employer] following as above. Patient with respiratory failure requiring intubation on morning of 10/05. Respiratory failure multifactorial from encephalopathy, pulmonary edema in setting of heavy IV fluid resuscitation and possible aspiration pneumonia. Treatment as above and below. Continue ventilator management per housing assistant. 3. Acute toxic versus metabolic encephalopathy ? [facility] [employer] following as above. Patient only A&O x1 to person on admit. Suspected this was multifactorial from poor clearance of home morphine and gabapentin in setting of severe CHRISTINE, with UTI and septic shock contributing. Patient now intubated and sedated. Holding home medications at this time. 4. Acute renal failure with hyperkalemia and severe metabolic acidosis ? Nephrology following. Creatinine 3.61 on admit, baseline around 0.6. Presumed secondary to sepsis and rhabdomyolysis. Severely worsened on morning of 10/05 with creatinine 4.97 and potassium 7.1 with minimal urine output. ABG with pH 6.9, bicarb 9, CO2 40, pO2 116. Temporary HD line in place and patient initiated on CRRT today. Holding on further IV fluids for now with patient on CRRT. Monitoring labs every 6 hours for now. Bynum catheter in place for accurate I's and O's. 5. Rhabdomyolysis ? CPK level greater than 22,000 on admit. Had fall at home with last known well around 2200 and was found facedown on the floor about 7 hours later. Holding on further IV fluids for now with CRRT initiated as above. Monitor daily CPK level. 6. Hyponatremia, improving ? Sodium 125 on admit, chloride 77. Presume secondary to severe volume depletion in setting of septic shock. Given heavy IV fluids on admit and now treating with CRRT as above. Most recent sodium 134 on 10/05. 7. Acute liver failure ? Presumed secondary to septic shock as noted above. Severely elevated liver enzymes on admission that have remained stable. Most recent INR 2.0 on 10/05. Continue to monitor with treatment as above. 8. Hypocalcemia ? Nephrology following as above. Calcium clara of 5.7 on 10/05. Treating with CRRT and monitoring labs as above. 9. Elevated troponin level ? Troponin trend 96 > 85 > 94. No EKG changes noted. Echo on 10/05 with EF 50%, improved from 1 month ago. Strongly suspect demand ischemia in setting of septic shock as above. No further cardiac workup needed. 10. History of CAD with recent CABG x 5, chronic mild HFrEF, hypertension, hyperlipidemia ? Follows with cardiology in [place]. Had recent CABG x 5 in August. Echo in August showed EF 40 to 45%. Repeat echo on 10/05 as noted above. Continue home aspirin, holding Plavix. Holding home blood pressure medications for now in setting of sepsis. Holding home Zetia in setting of rhabdo. 11. Chronic pain syndrome ? On home duloxetine, gabapentin, morphine and hydrocodone?acetaminophen as needed. Reviewed OARRS and patient has been filling these regularly. Holding home medications at this time. Chronic medical conditions: ? Class I obesity with AG: BMI 31 on admit. Complicates hospital course, care and prognosis. ? Reported frequent alcohol use: Was reported at ED visit in early September. Alcohol level negative on admit. ? Tobacco use: Nicotine replacement therapy available as needed. DVT prophylaxis: Heparin subcu CODE STATUS: Full code, unverified Expected disposition: TBD Total clinical time spent by myself addressing the patient's medical issues, reviewing all the data, and collaborating with patient's care team: 50 minutes. Charges/Coding Visit Charges Inpatient E&M: 50116 Subs Hosp L3 NIHSS NIHSS Nursing Documentation NIHSS Nursing Documentation: NIHSS: Ischemic Stroke/TIA Start: 10/04/24 11:06 Freq: Status: Active Protocol: Activity Type Activity Date Activity User E-sign Co-sign Detail Recorded Client Recorded Date Recorded By Document 10/04/24 10:45 [facility] [id number] 10/04/24 11:07 LR 10/04/24 10:45 NIH Stroke Scale [NIHSS] A score of 0 is normal or asymptomatic . Total possible score is 42. Inpatient: RN or Physician to activate a stroke alert for onset of new stroke symptoms or with NIHSS increase >/= 3 points. Following change in neurological status, NIHSS will be performed per physician order or more frequently PRN. -1a. Level of Consciousness 1 - Not alert; Arousable by minor stimuli to obey, answer & respond -1b. LOC Questions 0 - Answers BOTH questions correctly -1c. LOC Commands 0 - Performs BOTH tasks correctly -2. Best Gaze 0 - Normal -3. Visual 0 - No visual loss -4. Facial Palsy 0 - Normal symmetrical movements -5a. Left Arm 2 - Some effort against gravity; -5b. Right Arm 0 - No drift; arm holds 90 ( or 45) degrees for full 10 seconds -6a. Left Leg 2 - Some effort against gravity; -6b. Right Leg 0 - No drift; leg holds 30- degree position for full 5 seconds -7. Limb Ataxia 0 - Absent -8. Sensory 1 - Mild-to- moderate sensory loss; -9. Best Language 1 - Mild-to- moderate aphasia; -10. Dysarthria 1 = Mild-to- moderate dysarthria; -11. Extinction and Inattention 0 - No abnormality -Total 8 Query Text:A score of 0 is normal or asymptomatic. Total possible score is 42 . ED: Notify Physician for NIHSS increase by > / = 3 points. Inpatient: RN or Physician to activate a stroke alert for NIHSS increase of > / = 3 points.
[2024-10-05 11:37] LABS: BUN 86 mg/dL (4-19); BUN/Creat Ratio 18.2 RATIO (10-20); Creatinine, Serum 4.74 mg/dL (0.70-1.20); EST Glomerular Filtration Rate 13 (>60); Glucose 123 mg/dL (70-99); Protein, Total 4.6 g/dL (5.9-8.4)
[2024-10-05 11:38] LABS: ALB/GLOB Ratio 0.7 RATIO (0.9-2.4); Alkaline Phosphatase 259 U/L (40-129); Chloride 94 mmol/L (98-108); Globulin 2.7 g/dL (2.2-4.2); Sodium Level 134 mmol/L (133-145); Total Bilirubin 0.77 mg/dL (0.00-1.30)
[2024-10-05 11:42] LABS: Base Excess -17 mmol/L (-2 to +2); Bicarbonate 12.8 mmol/L (22-26); Blood Gas Specimen Type ART; Mode AC; O2 Delivery Device Adult Vent; PEEP 5; PO2 76 mmHG (75-100); RR 16; SITE Art Line; SO2 89 % (95-99); Time Given 11:38:50; Total Carbon Dioxide 14 mmol/L; pCO2 41.2 mmHg (35-45)
[2024-10-05 11:44] LABS: AST(SGOT) 3028 U/L (<=37); Alanine Aminotransfer ALT/SGPT 855 U/L (<=46); Potassium 6.8 mmol/L (3.3-5.1)
[2024-10-05 11:48] LABS: Prothrombin Time (Protime)PT. 23.3 SECONDS (11.7-14.9)
[2024-10-05 11:49] LABS: Partial Thromboplast Time 42.7 Seconds (24.1-36.2)
[2024-10-05] MEDS: Pantoprazole Sodium 40 MG in 0.9% Normal Saline (100mL MB+) 100 ML 330 MG IV (12:00)
[2024-10-05 12:15] LABS: Vancomycin, Random Level 5.9 ug/mL (0.0-15.0)
[2024-10-05] MEDS: Hydrocortisone Sod Succinate 100 MG/2 ML Vial 50 MG IV ×3 (12:37→23:26)
[2024-10-05] MEDS: Heparin Injection (Vial) 5,000 UNIT/ML VIAL 5000 UNIT SC ×2 (12:38→20:30)
--- NOTE | 2024-10-05 12:47 | PCM.CONS.R ---
Assessment & Plan Assessment/Plan (1) Metabolic acidosis: (2) Acute kidney injury: PLAN: Acute renal failure. Presumably ischemic ATN in the setting of severe septic shock. Gram-negative bacteremia, presumably urinary origin. Severe metabolic acidosis, presumably lactic acid related. Hyperkalemia in the setting of renal failure and acidosis. Will need emergent renal replacement therapy. Discussed with family at bedside, they are agreeable for any aggressive measures. Discussed with ICU attending, dialysis catheter placed this morning, will initiate CRRT. However he is on multiple pressors and bicarbonate drip and blood pressure is barely 90 systolic. I am not sure if he will tolerate CRRT but will attempt. Rhabdomyolysis. CPK level more than 22,000. Presumably this is related to prolonged immobilization. (3) Septic shock: HPI Consult Data Date of Consult: 10/05/24 HPI Narrative Reason for Consultation: christiano HPI Narrative: ROQUE YANG, is a 59 M who presents To the hospital with altered mental status, severe shock. Nephrology on consultation in view of acute renal failure. Most of the history is from the family at bedside and charts. Patient is currently intubated, severe septic shock, multiple pressors. Severe acidosis, hyperkalemia. As per charts there is history of alcohol abuse, apparently had significant alcohol intake on Thursday. Family could not wake him up for several hours, finally 911 was called. On arrival he was found to have severe septic shock, likely lactic acidosis, Gram negative bacteremia presumably urinary origin. Currently intubated. 3 different pressors. Bicarbonate drip. Unable to obtain review of systems. [facility] Medical History (Updated 10/05/24 @ 10:[address] Juanito Yang, DO) Acute kidney injury Blepharitis, right eye Conjunctivitis, right eye Back pain Neck pain Stroke Home Medications ?Medication ?Instructions ?Recorded ?Last Taken ?Type clopidogrel 75 mg tablet (Plavix) 75 mg PO DAILY 12/17/22 10/03/24 History aspirin 81 mg tablet 81 mg PO DAILY 10/04/24 10/03/24 History diazepam 5 mg tablet 5 mg PO QHS PRN PRN anxiety 10/04/24 10/03/24 History duloxetine 20 mg capsule,delayed 20 mg PO DAILY 10/04/24 10/03/24 History release ezetimibe 10 mg tablet 10 mg PO DAILY 10/04/24 10/03/24 History gabapentin 800 mg tablet 800 mg PO TID 10/04/24 10/03/24 History hydrocodone 10 mg-acetaminophen 1 - 2 tab PO PRN PRN pain 10/04/24 10/03/24 History 325 mg tablet isosorbide mononitrate 30 mg 30 mg PO DAILY 10/04/24 10/03/24 History tablet,extended release 24 hr metoprolol succinate 25 mg 25 mg PO DAILY 10/04/24 10/03/24 History tablet,extended release 24 hr morphine 30 mg tablet,extended 30 mg PO Q12.TCU 10/04/24 10/03/24 History release nitroglycerin 0.4 mg sublingual 0.4 mg sublingual Q5M angina 10/04/24 Unknown History tablet Allergy/AdvReac Type Severity Reaction Status Date / Time morphine Allergy Mild OTHER Verified 10/04/24 05:59 Social History Smoking Status: Current every day smoker tobacco type: cigarettes Physical Exam Narrative no obvious distress no pallor no icterus no JVD s1s2 no murmurs lungs clear abdomen soft no organomegaly no edema mottled elena + Lab / Micro Data 10/05/24 04:45 10/05/24 09:40 Labs: Laboratory Results - last 24 hr 10/04/24 13:35: Sodium 128 L, Potassium 4.9, Chloride 88 L, Carbon Dioxide 18.2 L, Anion Gap 23 H, BUN 72 H, Creatinine 3.48 H, Estim Creat Clear Calc 24.64 L, Est GFR (MDRD) Non-Af 19 L, BUN/Creatinine Ratio 20.7 H, Glucose 122 H, Calcium 6.5 L* 10/04/24 17:10: POC Glucose 90 10/05/24 04:45: WBC 8.3, RBC 3.66 L, Hgb 11.3 L, Hct 32.0 L, MCV 87.4 D, MCH 30.9, MCHC 35.3 D, RDW Std Deviation 47.6 H, RDW Coeff of Deepa 14.8 H, Plt Count 174, MPV 10.6, Sodium 128 L, Potassium 7.1 H*, Chloride 89 L, Carbon Dioxide 11.5 L, Anion Gap 28 H, BUN 89 H, Creatinine 4.97 H, Estim Creat Clear Calc 17.45 L, Est GFR (MDRD) Non-Af 13 L, BUN/Creatinine Ratio 17.9, Glucose 135 H, Calcium 5.7 L*, Magnesium 3.6 H, Total Bilirubin 0.87, Direct Bilirubin 0.60 H, AST 3047 H, ALT 795 H, Alkaline Phosphatase 257 H, Total Creatine Kinase > 97979 H, Troponin T High Sens 96 H* D, Total Protein 5.7 L, Albumin 2.5 L, Globulin 3.2 10/05/24 07:02: Ionized Calcium 1.18, Troponin T Hi Sens 2 Hr 85 H* 10/05/24 09:40: Sodium 134, Potassium 6.8 H*, Chloride 94 L, Carbon Dioxide 8.5 L*, Anion Gap 31 H, BUN 86 H, Creatinine 4.74 H, Estim Creat Clear Calc 18.30 L, Est GFR (MDRD) Non-Af 13 L, BUN/Creatinine Ratio 18.2, Glucose 123 H, Calcium 6.4 L*, Total Bilirubin 0.77, AST 3028 H, ALT 855 H, Alkaline Phosphatase 259 H, Troponin T Hi Sens 4Hr 94 H*, Total Protein 4.6 L, Albumin 2.0 L, Globulin 2.7, Albumin/Globulin Ratio 0.7 L 10/05/24 11:25: PT 23.3 H, INR 2.0, APTT 42.7 H, Random Vancomycin 5.9 Micro: Microbiology 10/04/24 06:02 Urine Catheter - Elena Urine Culture - Preliminary GNR lactose bolt man 10/04/24 06:24 Blood Culture (Wb) - Anticubital Right Blood Culture - Preliminary Gram negative patrick ABG Data ABG results: ABG 10/04/24 10/04/24 10/05/24 19:27 19:45 00:22 Specimen Type JOSE ART ART Sample Site Not entered R Fem R Fem pH 7.37 7.29 L Bicarbonate Actual 13.8 L 16.4 L Total CO2 15 17 Base Excess -12 L -10 L O2 Saturation 95 94 L O2 % 6.0 40.0 65.0 ABG pCO2 24.1 L 33.9 L ABG pO2 78 77 Zachariah Test Positive Positive VBG pH 7.38 VBG pO2 34 VBG HCO3 16 L VBG Total CO2 17 L VBG O2 Sat (Calc) 65 VBG Base Excess -9 L POC Mix VBG pCO2 Pt Tmp 27.0 L Respiration Rate 16 14 O2 Delivery Device Cannula BiPAP BiPAP Vent Mode Not entered Not entered Tidal Volume POC PEEP Crit Call To/Read Back Blood Gas Notified Whom Blood Gas Notified Time Clinical Comments 16 10 16 10 10/05/24 10/05/24 07:28 11:37 Specimen Type ART ART Sample Site L Fem Art Line pH 6.97 L* 7.10 L* Bicarbonate Actual 9.2 L 12.8 L Total CO2 11 14 Base Excess -23 L -17 L O2 Saturation 95 89 L O2 % 100.0 90.0 ABG pCO2 40.6 41.2 ABG pO2 116 H 76 Zachariah Test VBG pH VBG pO2 VBG HCO3 VBG Total CO2 VBG O2 Sat (Calc) VBG Base Excess POC Mix VBG pCO2 Pt Tmp Respiration Rate 16 16 O2 Delivery Device Adult Vent Adult Vent Vent Mode AC AC Tidal Volume 450.0 450.0 POC PEEP 5 5 Crit Call To/Read Back Yes Yes Blood Gas Notified Whom brown brown Blood Gas Notified Time 07:29:40 11:38:50 Clinical Comments Imaging Radiology Impression Chest X-Ray 10/05/24 08:55 IMPRESSION: Tubes and lines in position. There is cardiomegaly with central vascular congestion. There is blunting of the costophrenic angle on the left consistent with a small effusion. Reading Location: [facility]
[2024-10-05] MEDS: Phenylephrine 10 MG in 0.9% Normal Saline (250mL Bag) 249 ML 45 MG CONT INF (13:01)
[2024-10-05] MEDS: Calcium Chloride 1 GM/10 ML Syringe 2 GM IVP (13:35)
--- NOTE | 2024-10-05 13:36 | PHA.PHARE_ITS ---
Consult Antibiotic Management Pharmacy has been consulted to manage selected antibiotic: Vancomycin Type of Intervention Type of Consult: Follow-up Suspected Infection Suspected Infection: Bacteremia and Other (UTI) Labs Labs: Sodium 134 mmol/L (133-145) 10/05/24 09:40 Potassium 6.8 mmol/L (3.3-5.1) H* 10/05/24 09:40 Chloride 94 mmol/L (98-108) L 10/05/24 09:40 Carbon Dioxide 8.5 mmol/L (21.0-32.0) L* 10/05/24 09:40 Anion Gap 31 (5-15) H 10/05/24 09:40 BUN 86 mg/dL (4-19) H 10/05/24 09:40 Creatinine 4.74 mg/dL (0.70-1.20) H 10/05/24 09:40 Est GFR (MDRD) Non-Af 13 (>60) L 10/05/24 09:40 BUN/Creatinine Ratio 18.2 RATIO (10-20) 10/05/24 09:40 Glucose 123 mg/dL (70-99) H 10/05/24 09:40 Random Vancomycin 5.9 ug/mL (0.0-15.0) 10/05/24 11:25 Microbiology Microbiology: Microbiology 10/04/24 06:02 Urine Catheter - Bynum Urine Culture - Preliminary GNR lactose photolithographic stripper 10/04/24 06:24 Blood Culture (Wb) - Anticubital Right Blood Culture - Preliminary Gram negative patrick Pharmacy Plan for Drug Dosing Pharmacy Plan for Drug Dosing: VANCOMYCIN LEVEL RECEIVED Current Vancomycin Dose: 750 MG Q12 - on hold due to increase in SCr from 3.4 to 4.9 Number of Doses Received: 1 (1250mg dose) Vancomycin Level: 5.9 mg/dL Hours Since Last Dose: 27.5 Renal Function: SCr 4.74 mg/dL - CRRT started 10/05/24 @ 1100 Renal Function Trend: unstable, CHRISTINE Lab/Micro: GNR in blood Cx Vancomycin Plan/Comments: Vancomycin put on hold and random level entered due to large increase in SCr from 3.4 mg/dL 10/04 to 4.97 mg/dL 10/05 (at time of initial review). Since then, CRRT has been started. 27.5 hour random level (was drawn af ter start of CRRT) is now subtherapeutic at 5.9mg/dL (goal 15-20). Will initiate weight based CRRT dosing of 1000mg Q12 and get a trough in 24 hours per policy. Pending Level: 10/05/24 @ 1300 Pharmacy Service will continue to monitor and adjust dosing as required.
[2024-10-05] MEDS: Vancomycin IV 1,000 MG/200 ML BAG 200 MG IV (14:05)
[2024-10-05 16:02] LABS: Base Excess -6 mmol/L (-2 to +2); Bicarbonate 20.2 mmol/L (22-26); Blood Gas Specimen Type ART; Mode AC; O2 Delivery Device Adult Vent; PEEP 5; PO2 174 mmHG (75-100); RR 20; SITE Art Line; SO2 100 % (95-99); Total Carbon Dioxide 21 mmol/L; pCO2 38.8 mmHg (35-45); pH 7.32 (7.35-7.45)
[2024-10-05 16:25] LABS: Albumin, Serum 2.1 g/dL (3.5-5.0); Anion Gap 20 (5-15); BUN 71 mg/dL (4-19); BUN/Creat Ratio 19.9 RATIO (10-20); Calcium,Total 6.9 mg/dL (7.6-11.0); Chloride 95 mmol/L (98-108); Creatinine, Serum 3.57 mg/dL (0.70-1.20); EST Glomerular Filtration Rate 19 (>60); Estimated Creatinine Clearance 24.02 ml/min (50-250); Glucose 210 mg/dL (70-99); Magnesium 2.8 mg/dL (1.5-2.2); Phosphorus 9.9 mg/dL (2.7-4.5); Potassium 5.9 mmol/L (3.3-5.1); Sodium Level 131 mmol/L (133-145)
--- NOTE | 2024-10-05 16:37 | CASEMGMT ---
Social Work- SW participated in interdisciplinary rounds with care team. Pt present, but left to make calls to family. SW remains available to follow for supports. THI Kamara
--- NOTE | 2024-10-05 16:59 | PCM.CONS.C ---
Assessment & Plan Assessment/Plan (1) Acute pyelonephritis: (2) Septic shock: (3) Acute CVA (cerebrovascular accident): (4) Acute kidney injury: (5) UTI (urinary tract infection): (6) Cardiac arrest with successful resuscitation: PLAN: 59-year-old male presented to the hospital with altered mental status Patient presentation was to the ED in October 04, 2024 with worsening symptoms of generalized weakness and slurred speech. Had severe septic shock. With acute renal failure patient has been intubated and on ventilator support He has hyperkalemia with severe metabolic acidosis. Cardiac consultation requested for evaluation postcardiac cath. Where an echocardiogram showed low normal ejection fraction./Limited transthoracic echocardiogram. Initial serum potassium level was around 7.1. He had a total creatinine kinase of more than 22,000 and high sensitive troponin around 96. This is likely type II [place] with demand myocardial ischemia in the setting of severe septic shock Dialysis catheter was set up and patient started on CRRT. Patient has rhabdomyolysis with significant elevated CPK and acute renal failure/acute pyelonephritis. And UTI. With gram-negative bacteremia. Cardiac care plan The high sensitive troponin level trended down Patient has been on amiodarone as well has been on inotropic support for severe septic shock and hypotension. No plan for any invasive cardiac evaluation. I Dominic Gudino MD,[facility] HPI Consult Data Date of Consult: 10/05/24 HPI Narrative Reason for Consultation: Severe septic shock/postcardiac arrest HPI Narrative: ROQUE PUENTES, is a 59 M who presents [facility] Medical History (Updated 10/05/24 @ 17:[address] Dominic Gudino MD) Acute kidney injury Blepharitis, right eye Conjunctivitis, right eye Back pain Neck pain Stroke Home Medications ?Medication ?Instructions ?Recorded ?Last Taken ?Type clopidogrel 75 mg tablet (Plavix) 75 mg PO DAILY 12/17/22 10/03/24 History aspirin 81 mg tablet 81 mg PO DAILY 10/04/24 10/03/24 History diazepam 5 mg tablet 5 mg PO QHS PRN PRN anxiety 10/04/24 10/03/24 History duloxetine 20 mg capsule,delayed 20 mg PO DAILY 10/04/24 10/03/24 History release ezetimibe 10 mg tablet 10 mg PO DAILY 10/04/24 10/03/24 History gabapentin 800 mg tablet 800 mg PO TID 10/04/24 10/03/24 History hydrocodone 10 mg-acetaminophen 1 - 2 tab PO PRN PRN pain 10/04/24 10/03/24 History 325 mg tablet isosorbide mononitrate 30 mg 30 mg PO DAILY 10/04/24 10/03/24 History tablet,extended release 24 hr metoprolol succinate 25 mg 25 mg PO DAILY 10/04/24 10/03/24 History tablet,extended release 24 hr morphine 30 mg tablet,extended 30 mg PO Q12.TCU 10/04/24 10/03/24 History release nitroglycerin 0.4 mg sublingual 0.4 mg sublingual Q5M angina 10/04/24 Unknown History tablet Allergy/AdvReac Type Severity Reaction Status Date / Time morphine Allergy Mild OTHER Verified 10/04/24 05:59 Social History Smoking Status: Current every day smoker tobacco type: cigarettes Physical Exam Cardio Cardio Narrative: Seen and evaluated in ICU along with the nursing staff Intubated on mechanical ventilator And on inotropic support. Cardiac rhythm as underlying A-fib with RVR Cardiac examination S1-S2 is irregular Chest exam is clear to auscultation. No lower extremity edema. Risk Stratification Risk Stratification Applicable: No Objective Data Vital Signs: Vital Signs Temp Pulse Resp BP Pulse Ox O2 Del Method O2 Flow Rate 96.2 F L 133 H 25 H 120/74 82 Mechanical Ventilator 10 10/05/24 14:00 10/05/24 14:00 10/05/24 14:00 10/05/24 14:30 10/05/24 07:00 10/05/24 14:00 10/04/24 19:08 FiO2 100 10/05/24 14:00 Oxygen Flow Rate (L/min) 10 Oxygen Delivery Method Mechanical Ventilator Weight: 201 lb 8.04 oz Body Mass Index (BMI) 31.6 Intake & Output: Intake and Output for Last 24 Hours 10/03/24 10/04/24 10/05/24 23:59 23:59 23:59 Intake Total 5182.72 / 5201.52 4961.46 / 4961.46 Output Total 1150 / 1150 10 / 10 Balance 4032.72 / 4051.52 4951.46 / 4951.46 Lab / Micro Data 10/05/24 04:45 10/05/24 15:25 Labs: Laboratory Results - last 24 hr 10/04/24 17:10: POC Glucose 90 10/05/24 04:45: WBC 8.3, RBC 3.66 L, Hgb 11.3 L, Hct 32.0 L, MCV 87.4 D, MCH 30.9, MCHC 35.3 D, RDW Std Deviation 47.6 H, RDW Coeff of Deepa 14.8 H, Plt Count 174, MPV 10.6, Sodium 128 L, Potassium 7.1 H*, Chloride 89 L, Carbon Dioxide 11.5 L, Anion Gap 28 H, BUN 89 H, Creatinine 4.97 H, Estim Creat Clear Calc 17.45 L, Est GFR (MDRD) Non-Af 13 L, BUN/Creatinine Ratio 17.9, Glucose 135 H, Calcium 5.7 L*, Magnesium 3.6 H, Total Bilirubin 0.87, Direct Bilirubin 0.60 H, AST 3047 H, ALT 795 H, Alkaline Phosphatase 257 H, Total Creatine Kinase > 80141 H, Troponin T High Sens 96 H* D, Total Protein 5.7 L, Albumin 2.5 L, Globulin 3.2 10/05/24 07:02: Ionized Calcium 1.18, Troponin T Hi Sens 2 Hr 85 H* 10/05/24 09:40: Sodium 134, Potassium 6.8 H*, Chloride 94 L, Carbon Dioxide 8.5 L*, Anion Gap 31 H, BUN 86 H, Creatinine 4.74 H, Estim Creat Clear Calc 18.30 L, Est GFR (MDRD) Non-Af 13 L, BUN/Creatinine Ratio 18.2, Glucose 123 H, Calcium 6.4 L*, Total Bilirubin 0.77, AST 3028 H, ALT 855 H, Alkaline Phosphatase 259 H, Troponin T Hi Sens 4Hr 94 H*, Total Protein 4.6 L, Albumin 2.0 L, Globulin 2.7, Albumin/Globulin Ratio 0.7 L 10/05/24 11:25: PT 23.3 H, INR 2.0, APTT 42.7 H, Random Vancomycin 5.9 10/05/24 15:25: Sodium 131 L, Potassium 5.9 H, Chloride 95 L, Carbon Dioxide 16.0 L, Anion Gap 20 H, BUN 71 H, Creatinine 3.57 H, Estim Creat Clear Calc 24.02 L, Est GFR (MDRD) Non-Af 19 L, BUN/Creatinine Ratio 19.9, Glucose 210 H, Calcium 6.9 L, Phosphorus 9.9 H*, Magnesium 2.8 H, Albumin 2.1 L Micro: Microbiology 10/04/24 06:02 Urine Catheter - Bynum 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 10/04/24 06:24 Blood Culture (Wb) - Anticubital Right Blood Culture - Preliminary Gram negative patrick ABG Data ABG results: ABG 10/04/24 10/04/24 10/05/24 19:27 19:45 00:22 Specimen Type JOSE ART ART Sample Site Not entered R Fem R Fem pH 7.37 7.29 L Bicarbonate Actual 13.8 L 16.4 L Total CO2 15 17 Base Excess -12 L -10 L O2 Saturation 95 94 L O2 % 6.0 40.0 65.0 ABG pCO2 24.1 L 33.9 L ABG pO2 78 77 Zachariah Test Positive Positive VBG pH 7.38 VBG pO2 34 VBG HCO3 16 L VBG Total CO2 17 L VBG O2 Sat (Calc) 65 VBG Base Excess -9 L POC Mix VBG pCO2 Pt Tmp 27.0 L Respiration Rate 16 14 O2 Delivery Device Cannula BiPAP BiPAP Vent Mode Not entered Not entered Tidal Volume POC PEEP Crit Call To/Read Back Blood Gas Notified Whom Blood Gas Notified Time Clinical Comments 16 10 16 10 10/05/24 10/05/24 10/05/24 07:28 11:37 15:57 Specimen Type ART ART ART Sample Site L Fem Art Line Art Line pH 6.97 L* 7.10 L* 7.32 L Bicarbonate Actual 9.2 L 12.8 L 20.2 L Total CO2 11 14 21 Base Excess -23 L -17 L -6 L O2 Saturation 95 89 L 100 H O2 % 100.0 90.0 100.0 ABG pCO2 40.6 41.2 38.8 ABG pO2 116 H 76 174 H Zachariah Test VBG pH VBG pO2 VBG HCO3 VBG Total CO2 VBG O2 Sat (Calc) VBG Base Excess POC Mix VBG pCO2 Pt Tmp Respiration Rate 16 16 20 O2 Delivery Device Adult Vent Adult Vent Adult Vent Vent Mode AC AC AC Tidal Volume 450.0 450.0 450.0 POC PEEP 5 5 5 Crit Call To/Read Back Yes Yes Blood Gas Notified Whom david puentes Blood Gas Notified Time 07:29:40 11:38:50 Clinical Comments Cardiology Labs/Tests 10/04/24 19:27: VBG pH 7.38, VBG pO2 34, VBG HCO3 16 L, VBG O2 Sat (Calc) 65, VBG Base Excess -9 L 10/04/24 19:45: pH 7.37, Bicarbonate Actual 13.8 L, Base Excess -12 L, O2 Saturation 95, ABG pCO2 24.1 L, ABG pO2 78, Zachariah Test Positive 10/05/24 00:22: pH 7.29 L, Bicarbonate Actual 16.4 L, Base Excess -10 L, O2 Saturation 94 L, ABG pCO2 33.9 L, ABG pO2 77, Zachariah Test Positive 10/05/24 04:45: WBC 8.3, RBC 3.66 L, Hgb 11.3 L, Hct 32.0 L, MCV 87.4 D, MCH 30.9, MCHC 35.3 D, Plt Count 174, MPV 10.6, Sodium 128 L, Potassium 7.1 H*, Chloride 89 L, Carbon Dioxide 11.5 L, Anion Gap 28 H, BUN 89 H, Creatinine 4.97 H, Est GFR (MDRD) Non-Af 13 L, BUN/Creatinine Ratio 17.9, Glucose 135 H, Calcium 5.7 L*, Magnesium 3.6 H, Total Bilirubin 0.87, Direct Bilirubin 0.60 H 10/05/24 07:02: Ionized Calcium 1.18 10/05/24 07:28: pH 6.97 L*, Bicarbonate Actual 9.2 L, Base Excess -23 L, O2 Saturation 95, ABG pCO2 40.6, ABG pO2 116 H 10/05/24 09:40: Sodium 134, Potassium 6.8 H*, Chloride 94 L, Carbon Dioxide 8.5 L*, Anion Gap 31 H, BUN 86 H, Creatinine 4.74 H, Est GFR (MDRD) Non-Af 13 L, BUN/Creatinine Ratio 18.2, Glucose 123 H, Calcium 6.4 L*, Total Bilirubin 0.77 10/05/24 11:25: PT 23.3 H, INR 2.0, APTT 42.7 H 10/05/24 11:37: pH 7.10 L*, Bicarbonate Actual 12.8 L, Base Excess -17 L, O2 Saturation 89 L, ABG pCO2 41.2, ABG pO2 76 10/05/24 15:25: Sodium 131 L, Potassium 5.9 H, Chloride 95 L, Carbon Dioxide 16.0 L, Anion Gap 20 H, BUN 71 H, Creatinine 3.57 H, Est GFR (MDRD) Non-Af 19 L, BUN/Creatinine Ratio 19.9, Glucose 210 H, Calcium 6.9 L, Phosphorus 9.9 H*, Magnesium 2.8 H 10/05/24 15:57: pH 7.32 L, Bicarbonate Actual 20.2 L, Base Excess -6 L, O2 Saturation 100 H, ABG pCO2 38.8, ABG pO2 174 H Rhythm: EKG: ECHO: Stress Test: Cardiac Cath: PCI: CT Surgery: Holter monitor: EPS: PPM: CXR: Chest CT Scan: Radiography Diagnostic Testing: Radiology Impression Echocardiogram 10/05/24 05:01 Interpretation Summary The estimated ejection fraction is 50-55 %. Patient is post Cardiac arrest Limited TTE with low-normal EF Ordering Physician: Chang Villanueva Referring Physician: OTD Performed By: Dolores Boyle, MACO, RVT Chest X-Ray 10/05/24 08:55 IMPRESSION: Tubes and lines in position. There is cardiomegaly with central vascular congestion. There is blunting of the costophrenic angle on the left consistent with a small effusion. Reading Location: [facility]
[2024-10-05] MEDS: fentaNYL drip 100 ML 10 MCG CONT INF (18:46)
[2024-10-05] MEDS: Norepinephrine 8 MG in 0.9% Normal Saline (250mL Bag) 242 ML 46.9 MG CONT INF (18:52)
[2024-10-05] MEDS: Chlorhexidine 15 ML PO (20:31)
--- NOTE | 2024-10-05 21:22 | CPS ---
unable to obtain accurate pulse ox reading on patient at this time
[2024-10-05 21:46] LABS: Magnesium 2.8 mg/dL (1.5-2.2); Phosphorus 8.1 mg/dL (2.7-4.5)
[2024-10-05 21:54] LABS: Albumin, Serum 2.2 g/dL (3.5-5.0); Anion Gap 21 (5-15); BUN 60 mg/dL (4-19); BUN/Creat Ratio 19.9 RATIO (10-20); Calcium,Total 6.9 mg/dL (7.6-11.0); Carbon Dioxide 16.6 mmol/L (21.0-32.0); Chloride 94 mmol/L (98-108); Creatinine, Serum 3.01 mg/dL (0.70-1.20); EST Glomerular Filtration Rate 23 (>60); Estimated Creatinine Clearance 28.49 ml/min (50-250); Glucose 197 mg/dL (70-99); Potassium 6.3 mmol/L (3.3-5.1); Sodium Level 131 mmol/L (133-145)
[2024-10-06] VITALS (45 sets, daily range): BP systolic 53–104; BP diastolic 35–66; PULSE 110–154; RESP 14–23; TEMP 35.9–37.1; O2SAT 94; BMI 33.7
--- NOTE | 2024-10-06 00:36 | CPS ---
Unable to obtain accurate pulse ox reading on patient at this time
[2024-10-06] MEDS: 0.9% Saline Lock 10 ML Syringe IV (01:07)
[2024-10-06] MEDS: Heparin 10,000 UNITS/10 ML Vial IV (01:07)
[2024-10-06] MEDS: dexMEDEtomidine 400 MCG in 0.9% Normal Saline (100mL Bag) 96 ML 11.7 MCG CONT INF (01:07)
[2024-10-06] MEDS: Vancomycin IV 1,000 MG/200 ML BAG 200 MG IV (01:45)
--- NOTE | 2024-10-06 01:55 | RAD_ITS ---
PROCEDURE: ABDOMEN SINGLE VIEW (PORTABLE) 10/06/2024 REASON FOR EXAM: OGT PLACEMENT TECHNIQUE: Single view abdomen. FINDINGS: Nasogastric tube crosses the diaphragm with side port in the body of the stomach and tip towards the antrum, satisfactory position. Prominent appearing small bowel loops left abdomen and mild gaseous prominence of the colon. Rightward curvature lumbar spine. Thoracolumbar multilevel spondylosis/discogenic change. RAD/Abdomen Single View (Portable) IMPRESSION: Nasogastric tube crosses the diaphragm with side port in the body of the stomac h and tip towards the antrum, satisfactory position. Reading Location: [id number]
--- NOTE | 2024-10-06 02:10 | RAD_ITS ---
PROCEDURE: CHEST 1 VIEW (PORTABLE) 10/06/2024 REASON FOR EXAM: RESPIRATORY FAILURE TECHNIQUE: Frontal view of the chest. COMPARISON: 10/05/2024 FINDINGS: Endotracheal tube position remains satisfactory. Nasogastric tube crosses the diaphragm and extends off the inferior edge of the film. Right IJ line and right PICC again noted. Status post median sternotomy. No significant interval change in appearance of patchy bibasilar opacities which may represent developing pneumonia. RAD/Chest 1 View (Portable) IMPRESSION: No significant interval change in appearance of patchy bibasilar opacities whic h may represent developing pneumonia. Reading Location: [id number]
--- NOTE | 2024-10-06 02:38 | NURSING ---
Ring removed from left hand and given to Lesly.
[2024-10-06 03:21] LABS: Hematocrit 29.8 % (40-54); Hemoglobin 10.5 g/dL (13.0-16.5); Mean Corp Hgb Conc 35.2 g/dL (32-36); Mean Corpuscular Hgb 31.2 pg (27.0-32.0); Mean Corpuscular Volume 88.4 fL (80-94); Mean Platelet Vol. 10.9 fl (6.2-12.0); Platelet Count 225 K/mm3 (150-450); RBC Distribution Width CV 15.4 % (11.6-14.6); RBC Distribution Width SD 49.1 fl (35.1-43.9); Red Blood Count 3.37 M/mm3 (4.6-6.2); White Blood Count 19.9 K/mm3 (4.4-11.0)
[2024-10-06 03:31] LABS: Allen Test Positive; Base Excess -8 mmol/L (-2 to +2); Bicarbonate 18.4 mmol/L (22-26); Blood Gas Specimen Type ART; Mode AC; O2 Delivery Device Adult Vent; PEEP 5; PO2 167 mmHG (75-100); RR 20; SITE Art Line; SO2 99 % (95-99); Total Carbon Dioxide 20 mmol/L; pCO2 35.7 mmHg (35-45); pH 7.32 (7.35-7.45)
[2024-10-06 03:46] LABS: Anion Gap 32 (5-15); Calcium,Total 6.4 mg/dL (7.6-11.0); Carbon Dioxide 8.5 mmol/L (21.0-32.0)
[2024-10-06] MEDS: Norepinephrine 8 MG in 0.9% Normal Saline (250mL Bag) 242 ML 56.3 MG CONT INF ×3 (04:00→13:34)
[2024-10-06 04:26] LABS: AST(SGOT) 4462 U/L (<=37); Alanine Aminotransfer ALT/SGPT 972 U/L (<=46); Albumin, Serum 2.1 g/dL (3.5-5.0); Alkaline Phosphatase 408 U/L (40-129); Anion Gap 21 (5-15); BUN 53 mg/dL (4-19); BUN/Creat Ratio 19.3 RATIO (10-20); Bilirubin, Direct 0.83 mg/dL (0.00-0.30); CPK Total, Creatine Kinase > 22000 U/L (24-195); Calcium,Total 6.4 mg/dL (7.6-11.0); Carbon Dioxide 16.5 mmol/L (21.0-32.0); Chloride 94 mmol/L (98-108); Creatinine, Serum 2.76 mg/dL (0.70-1.20); EST Glomerular Filtration Rate 26 (>60); Estimated Creatinine Clearance 31.07 ml/min (50-250); Glucose 209 mg/dL (70-99); Potassium 6.1 mmol/L (3.3-5.1); Sodium Level 131 mmol/L (133-145)
[2024-10-06 04:38] LABS: Triglycerides 176 mg/dL
[2024-10-06 04:40] LABS: Magnesium 2.5 mg/dL (1.5-2.2); Phosphorus 7.3 mg/dL (2.7-4.5)
--- NOTE | 2024-10-06 04:43 | CPS ---
unable to obtain accurate pulse ox reading on patient
[2024-10-06] MEDS: CHLORHEXIDINE GLUC 2% CLOTH 1 EACH TOWELETTE TOPICAL (04:47)
[2024-10-06] MEDS: Piperacil/Tazobactam 3.375 GM in 0.9% Normal Saline (50mL MB+) 50 ML IV ×2 (04:53→16:16)
[2024-10-06] MEDS: fentaNYL drip 100 ML 10 MCG CONT INF (04:53)
[2024-10-06] MEDS: Hydrocortisone Sod Succinate 100 MG/2 ML Vial 50 MG IV ×3 (04:53→17:11)
[2024-10-06] MEDS: Phenylephrine 10 MG in 0.9% Normal Saline (250mL Bag) 249 ML 75 MG CONT INF (04:53)
[2024-10-06 04:55] LABS: CPK Total, Creatine Kinase > 22000 U/L (24-195)
[2024-10-06] MEDS: TITRATION PARAMETER CHANGE 1 EACH IV (05:03)
--- NOTE | 2024-10-06 05:42 | CPS ---
unable to obtain accurate pulse ox reading on patient at this time
[2024-10-06] MEDS: Sodium Bicarbonate 150 MEQ in Dextrose 5%-Water (1000mL Bag) 1,000 ML IV (06:48)
[2024-10-06] MEDS: PUREFLOW B SOLUTION 2K 5,000 ML BAG 9 BAG PF ×2 (06:48→14:14)
--- NOTE | 2024-10-06 06:56 | PCM.PN.INT ---
Assessment & Plan Assessment/Plan (1) Septic shock: (2) Acute kidney injury: (3) Rhabdomyolysis: PLAN: Plan RECOMMENDATIONS: 1. Continue assist-control mode mechanical ventilation. Continue to wean FiO2 and PEEP as tolerated. 2. Continue empiric broad-spectrum antimicrobials, pending finalized culture results. 3. Continue Levophed, vasopressin and Michael-Synephrine. 4. Continue hydrocortisone 50 mg every 6 hours. 5. Continue CRRT per nephrology recommendations. 6. Continue supplemental IV fluids. 7. Continue appropriate ICU prophylaxis. IMPRESSIONS: 1. Gram-negative septic shock with multisystem organ failure Clinical concern for both underlying pneumonia and genitourinary source of infection, with evidence of gram-negative bacteremia. The patient is in refractory septic shock with significant vasopressor requirement and multisystem organ failure. The patient will be continued on broad-spectrum antimicrobials along with Levophed, vasopressin and Michael-Synephrine in an attempt to maintain mean arterial pressure at or above 65 mmHg. In addition, stress dose steroids will be continued. 2. Acute kidney injury Most likely multifactorial in etiology with prerenal azotemia from sepsis coupled with rhabdomyolysis contributing. Continue judicious IV fluid resuscitation along with CRRT support. 3. Ischemic hepatitis Related to generalized hypoperfusion in the setting of gram-negative septic shock. Continue supportive measures as noted above. Continue to monitor liver function profile and coags. 4. Acute hypoxemic respiratory failure There is concern for underlying aspiration pneumonia leading to respiratory failure and need for intubation. The patient will be maintained on assist-control mode of mechanical ventilation, with a goal to wean FiO2 and PEEP to maintain saturations at or above 90%. Empiric broad-spectrum antimicrobials will be continued. 5. Toxic/metabolic encephalopathy Most likely secondary to presenting septic shock with profound metabolic derangements. CT head demonstrated no acute intracranial findings. 6. History of coronary artery disease status post recent CABG/SVT/chronic alcohol and tobacco dependency Complicates care, management, recovery and prognosis. Continue supportive measures as noted above. CODE STATUS: Full code TIME: 40 minutes of critical care time, independent of procedures, was spent addressing the patient's gram-negative septic shock with multisystem organ failure, acute hypoxemic respiratory failure, toxic/metabolic encephalopathy, review of all data and collaboration with the care team. Subjective Subjective The patient was seen and examined at the bedside this morning. Events from the last 24 hours have been reviewed. Although the patient is currently afebrile, he continues to require a combination of Levophed, vasopressin and Michael-Synephrine to maintain hemodynamic stability. The patient is documented to be overall net +8.6 L for the hospitalization. White blood cell count is elevated at 19,000 with a hemoglobin of 10.5 g/dL and platelet count of 225,000. ABG this morning was notable for a pH of 7.32 with a pCO2 of 35 and pO2 of 167. Chemistry profile was notable for a sodium of 131, potassium of 6.1, BUN of 53 and creatinine of 2.76. AST and ALT remain elevated at 4000 462 and 972, respectively. Total CK remains elevated at greater than 22,000. Objective Data Objective Data The patient's most recent lab work, culture data and imaging studies have all been personally reviewed. Limited surface echocardiogram demonstrated normal LV size and function with an ejection fraction of 50 to 55%. 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 Blood culture dated October 04 was positive for Enterobacter. Sputum culture is pending. Vital Signs: Vital Signs Temp Pulse Resp BP Pulse Ox O2 Del Method O2 Flow Rate 98.5 F 144 H 20 H 97/51 L 94 Mechanical Ventilator 10 10/06/24 06:00 10/06/24 06:45 10/06/24 06:45 10/06/24 06:30 10/06/24 06:45 10/06/24 06:45 10/04/24 19:08 FiO2 60 10/06/24 06:45 Oxygen Flow Rate (L/min) 10 Oxygen Delivery Method Mechanical Ventilator Weight: 215 lb 2.738 oz Body Mass Index (BMI) 33.7 Intake & Output: Intake and Output for Last 24 Hours 10/04/24 10/05/24 10/06/24 23:59 23:59 23:59 Intake Total 5182.72 / 5201.52 6836.23 / 6921.73 2484.61 / 2484.61 Output Total 1150 / 1150 3355 / 3559 1265 / 1265 Balance 4032.72 / 4051.52 3481.23 / 3362.73 1219.61 / 1219.61 Lab / Micro Data Attestation: I reviewed the patient's lab results. 10/06/24 03:10 10/06/24 08:40 Labs: Laboratory Results - last 24 hr 10/05/24 04:45: Sodium 128 L, Potassium 7.1 H*, Chloride 89 L, Carbon Dioxide 11.5 L, Anion Gap 28 H, BUN 89 H, Creatinine 4.97 H, Estim Creat Clear Calc 17.45 L, Est GFR (MDRD) Non-Af 13 L, BUN/Creatinine Ratio 17.9, Glucose 135 H, Calcium 5.7 L*, Total Bilirubin 0.87, Direct Bilirubin 0.60 H, AST 3047 H, ALT 795 H, Alkaline Phosphatase 257 H, Total Creatine Kinase > 99188 H, Total Protein 5.7 L, Albumin 2.5 L, Globulin 3.2 10/05/24 07:02: Ionized Calcium 1.18, Troponin T Hi Sens 2 Hr 85 H* 10/05/24 09:40: Sodium 134, Potassium 6.8 H*, Chloride 94 L, Carbon Dioxide 8.5 L*, Anion Gap 32 H, BUN 86 H, Creatinine 4.74 H, Estim Creat Clear Calc 18.30 L, Est GFR (MDRD) Non-Af 13 L, BUN/Creatinine Ratio 18.2, Glucose 123 H, Calcium 6.4 L*, Total Bilirubin 0.77, AST 3028 H, ALT 855 H, Alkaline Phosphatase 259 H, Troponin T Hi Sens 4Hr 94 H*, Total Protein 4.6 L, Albumin 2.0 L, Globulin 2.7, Albumin/Globulin Ratio 0.7 L 10/05/24 11:25: PT 23.3 H, INR 2.0, APTT 42.7 H, Random Vancomycin 5.9 10/05/24 15:25: Sodium 131 L, Potassium 5.9 H, Chloride 95 L, Carbon Dioxide 16.0 L, Anion Gap 20 H, BUN 71 H, Creatinine 3.57 H, Estim Creat Clear Calc 24.02 L, Est GFR (MDRD) Non-Af 19 L, BUN/Creatinine Ratio 19.9, Glucose 210 H, Calcium 6.9 L, Phosphorus 9.9 H*, Magnesium 2.8 H, Albumin 2.1 L 10/05/24 21:00: Sodium 131 L, Potassium 6.3 H*, Chloride 94 L, Carbon Dioxide 16.6 L, Anion Gap 21 H, BUN 60 H, Creatinine 3.01 H, Estim Creat Clear Calc 28.49 L, Est GFR (MDRD) Non-Af 23 L, BUN/Creatinine Ratio 19.9, Glucose 197 H, Calcium 6.9 L, Phosphorus 8.1 H, Magnesium 2.8 H, Albumin 2.2 L 10/06/24 03:10: WBC 19.9 H, RBC 3.37 L, Hgb 10.5 L, Hct 29.8 L, MCV 88.4, MCH 31.2, MCHC 35.2, RDW Std Deviation 49.1 H, RDW Coeff of Deepa 15.4 H, Plt Count 225, MPV 10.9, Sodium 131 L, Potassium 6.1 H*, Chloride 94 L, Carbon Dioxide 16.5 L, Anion Gap 21 H, BUN 53 H, Creatinine 2.76 H, Estim Creat Clear Calc 31.07 L, Est GFR (MDRD) Non-Af 26 L, BUN/Creatinine Ratio 19.3, Glucose 209 H, Calcium 6.4 L*, Phosphorus 7.3 H, Magnesium 2.5 H, Total Bilirubin 1.30, Direct Bilirubin 0.83 H, AST 4462 H, ALT 972 H, Alkaline Phosphatase 408 H, Total Creatine Kinase > 18584 H 10/06/24 03:10: Total Creatine Kinase > 04029 H, Total Protein 5.0 L, Albumin 2.1 L, Globulin 3.0, Triglycerides 176 Micro: Microbiology 10/04/24 06:24 Blood Culture (Wb) - Anticubital Right Blood Culture - Final Enterobacter cloacae complex 10/04/24 06:02 Urine Catheter - Bynum 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 ABG Data ABG results: ABG 10/05/24 10/05/24 10/05/24 07:28 11:37 15:57 Specimen Type ART ART ART Sample Site L Fem Art Line Art Line pH 6.97 L* 7.10 L* 7.32 L Bicarbonate Actual 9.2 L 12.8 L 20.2 L Total CO2 11 14 21 Base Excess -23 L -17 L -6 L O2 Saturation 95 89 L 100 H O2 % 100.0 90.0 100.0 ABG pCO2 40.6 41.2 38.8 ABG pO2 116 H 76 174 H Zachariah Test Respiration Rate 16 16 20 O2 Delivery Device Adult Vent Adult Vent Adult Vent Vent Mode AC AC AC Tidal Volume 450.0 450.0 450.0 POC PEEP 5 5 5 Crit Call To/Read Back Yes Yes Blood Gas Notified Whom david hernandez Blood Gas Notified Time 07:29:40 11:38:50 10/06/24 03:27 Specimen Type ART Sample Site Art Line pH 7.32 L Bicarbonate Actual 18.4 L Total CO2 20 Base Excess -8 L O2 Saturation 99 O2 % 80.0 ABG pCO2 35.7 ABG pO2 167 H Zachariah Test Positive Respiration Rate 20 O2 Delivery Device Adult Vent Vent Mode AC Tidal Volume 450.0 POC PEEP 5 Crit Call To/Read Back Blood Gas Notified Whom Blood Gas Notified Time Radiography Diagnostic Testing: Radiology Impression Echocardiogram 10/05/24 05:01 Interpretation Summary The estimated ejection fraction is 50-55 %. Patient is post Cardiac arrest Limited TTE with low-normal EF Ordering Physician: Chang Villanueva Referring Physician: OTD Performed By: Dolores Boyle, MACO, RVT Chest X-Ray 10/05/24 08:55 IMPRESSION: Tubes and lines in position. There is cardiomegaly with central vascular congestion. There is blunting of the costophrenic angle on the left consistent with a small effusion. Reading Location: [facility] X-Ray 10/06/24 01:55 IMPRESSION: Nasogastric tube crosses the diaphragm with side port in the body of the stomach and tip towards the antrum, satisfactory position. Reading Location: [id number] Chest X-Ray 10/06/24 02:10 IMPRESSION: No significant interval change in appearance of patchy bibasilar opacities which may represent developing pneumonia. Reading Location: [facility] Physical Exam Const Constitutional Narrative: Intubated and mechanically ventilated. General Appearance: ill appearing and patient mechanically ventilated HEENT normocephalic and head/scalp atraumatic Mouth: endotracheal tube in place and OG tube in place Eyes PERRL, EOMs intact bilaterally and conjunctivae normal Neck supple General: trachea midline and CVC in place Resp Auscultation: diminished lung sounds; Negative for rales, rhonchi or wheezes Cardio S1 normal heart sound and S2 normal heart sound Rate: tachycardic GI soft to palpation and non-tender Extremity Extremity Narrative: Extremities are mottled in appearance. General Extremity: Negative for edema Skin General Skin Exam: mottling Neuro Sensorium / Orientation: sedated on vent Charges/Coding Procedures Hospitalists Procedures: [id number] Critical Care 1st Hr
[2024-10-06] MEDS: Phenylephrine 10 MG in 0.9% Normal Saline (250mL Bag) 249 ML 105 MG CONT INF ×2 (07:53→10:24)
[2024-10-06] MEDS: Lactated Ringers 1,000 ML 200 ML IV (08:22)
[2024-10-06] MEDS: Heparin Injection (Vial) 5,000 UNIT/ML VIAL 5000 UNIT SC (08:36)
[2024-10-06] MEDS: Clopidogrel Bisulfate 75 MG Tablet PO (08:37)
[2024-10-06] MEDS: Aspirin 81 MG TAB.CHEW PO (08:37)
[2024-10-06] MEDS: Chlorhexidine 15 ML PO (08:42)
[2024-10-06] MEDS: Vasopressin 20 UNITS in 0.9% Normal Saline (50mL Bag) 24 ML 3 UNITS CONT INF ×2 (09:06→16:45)
[2024-10-06 09:17] LABS: International Normalized Ratio 1.9; Prothrombin Time (Protime)PT. 22.2 SECONDS (11.7-14.9)
[2024-10-06 09:18] LABS: Magnesium 2.4 mg/dL (1.5-2.2); Phosphorus 6.1 mg/dL (2.7-4.5)
[2024-10-06] MEDS: Pantoprazole Sodium 40 MG in 0.9% Normal Saline (100mL MB+) 100 ML 330 MG IV (09:35)
[2024-10-06 09:44] LABS: Anion Gap 21 (5-15); BUN 44 mg/dL (4-19); BUN/Creat Ratio 18.8 RATIO (10-20); Calcium,Total 6.4 mg/dL (7.6-11.0); Carbon Dioxide 17.4 mmol/L (21.0-32.0); Chloride 95 mmol/L (98-108); Creatinine, Serum 2.34 mg/dL (0.70-1.20); EST Glomerular Filtration Rate 31 (>60); Estimated Creatinine Clearance 37.84 ml/min (50-250); Glucose 160 mg/dL (70-99); Potassium 5.7 mmol/L (3.3-5.1); Sodium Level 133 mmol/L (133-145)
[2024-10-06] MEDS: dexMEDEtomidine 400 MCG in 0.9% Normal Saline (100mL Bag) 96 ML 14.6 MCG CONT INF (10:00)
--- NOTE | 2024-10-06 10:35 | PN.HOSP_ITS ---
Reason for Visit Reason for Visit: Diagnoses Sepsis, unspecified organism (10/04/24) Acidosis, unspecified (10/04/24) Cardiac arrest, cause unspecified (10/04/24) Cerebral infarction, unspecified (10/04/24) Rhabdomyolysis (10/04/24) Acute pyelonephritis (10/04/24) Acute kidney failure, unspecified (10/04/24) Urinary tract infection, site not specified (10/04/24) Severe sepsis with septic shock (10/04/24) Subjective Subjective Saw patient at bedside this morning. Patient remains sedated intubated and not following commands. Objective Data Objective Data Vital Signs: Vital Signs Temp Pulse Resp BP Pulse Ox O2 Del Method O2 Flow Rate 98.8 F 130 H 14 90/58 L 94 Mechanical Ventilator 10 10/06/24 10:00 10/06/24 10:00 10/06/24 10:00 10/06/24 10:00 10/06/24 06:45 10/06/24 10:00 10/04/24 19:08 FiO2 60 10/06/24 10:00 Oxygen Flow Rate (L/min) 10 Oxygen Delivery Method Mechanical Ventilator Weight: 97.6 kg Body Mass Index (BMI) 33.7 Intake & Output: Intake and Output for Last 24 Hours 10/04/24 10/05/24 10/06/24 23:59 23:59 23:59 Intake Total 5182.72 / 5201.52 6836.23 / 6921.73 3460.07 / 3460.07 Output Total 1150 / 1150 3355 / 3559 2212 / 2212 Balance 4032.72 / 4051.52 3481.23 / 3362.73 1248.07 / 1248.07 Lab / Micro Data 10/06/24 03:10 10/06/24 08:40 Labs: Laboratory Results - last 24 hr 10/05/24 09:40: Sodium 134, Potassium 6.8 H*, Chloride 94 L, Carbon Dioxide 8.5 L*, Anion Gap 32 H, BUN 86 H, Creatinine 4.74 H, Estim Creat Clear Calc 18.30 L, Est GFR (MDRD) Non-Af 13 L, BUN/Creatinine Ratio 18.2, Glucose 123 H, Calcium 6.4 L*, Total Bilirubin 0.77, AST 3028 H, ALT 855 H, Alkaline Phosphatase 259 H, Total Protein 4.6 L, Albumin 2.0 L, Globulin 2.7, Albumin/Globulin Ratio 0.7 L 10/05/24 11:25: PT 23.3 H, INR 2.0, APTT 42.7 H, Random Vancomycin 5.9 10/05/24 15:25: Sodium 131 L, Potassium 5.9 H, Chloride 95 L, Carbon Dioxide 16.0 L, Anion Gap 20 H, BUN 71 H, Creatinine 3.57 H, Estim Creat Clear Calc 24.02 L, Est GFR (MDRD) Non-Af 19 L, BUN/Creatinine Ratio 19.9, Glucose 210 H, C alcium 6.9 L, Phosphorus 9.9 H*, Magnesium 2.8 H, Albumin 2.1 L 10/05/24 21:00: Sodium 131 L, Potassium 6.3 H*, Chloride 94 L, Carbon Dioxide 16.6 L, Anion Gap 21 H, BUN 60 H, Creatinine 3.01 H, Estim Creat Clear Calc 28.49 L, Est GFR (MDRD) Non-Af 23 L, BUN/Creatinine Ratio 19.9, Glucose 197 H, C alcium 6.9 L, Phosphorus 8.1 H, Magnesium 2.8 H, Albumin 2.2 L 10/06/24 03:10: WBC 19.9 H, RBC 3.37 L, Hgb 10.5 L, Hct 29.8 L, MCV 88.4, MCH 31.2, MCHC 35.2, RDW Std Deviation 49.1 H, RDW Coeff of Deepa 15.4 H, Plt Count 225, MPV 10.9, Sodium 131 L, Potassium 6.1 H*, Chloride 94 L, Carbon Dioxide 16.5 L, Anion Gap 21 H, BUN 53 H, Creatinine 2.76 H, Estim Creat Clear Calc 31.07 L, Est GFR (MDRD) Non-Af 26 L, BUN/Creatinine Ratio 19.3, Glucose 209 H, C alcium 6.4 L*, Phosphorus 7.3 H, Magnesium 2.5 H, Total Bilirubin 1.30, Direct Bilirubin 0.83 H, AST 4462 H, ALT 972 H, Alkaline Phosphatase 408 H, Total Creatine Kinase > 51347 H 10/06/24 03:10: Total Creatine Kinase > 92584 H, Total Protein 5.0 L, Albumin 2.1 L, Globulin 3.0, Triglycerides 176 10/06/24 08:40: PT 22.2 H, INR 1.9, Sodium 133, Potassium 5.7 H, Chloride 95 L, Carbon Dioxide 17.4 L, Anion Gap 21 H, BUN 44 H, Creatinine 2.34 H, Estim Creat Clear Calc 37.84 L, Est GFR (MDRD) Non-Af 31 L, BUN/Creatinine Ratio 18.8, G lucose 160 H, Calcium 6.4 L*, Phosphorus 6.1 H, Magnesium 2.4 H, Albumin 2.0 L Micro: Microbiology 10/04/24 06:02 Urine Catheter - Bynum Urine Culture - Final Enterobacter cloacae complex 10/04/24 06:24 Blood Culture (Wb) - Anticubital Right Blood Culture - Final Enterobacter cloacae complex ABG Data ABG results: ABG 10/05/24 10/05/24 10/06/24 11:37 15:57 03:27 Specimen Type ART ART ART Sample Site Art Line Art Line Art Line pH 7.10 L* 7.32 L 7.32 L Bicarbonate Actual 12.8 L 20.2 L 18.4 L Total CO2 14 21 20 Base Excess -17 L -6 L -8 L O2 Saturation 89 L 100 H 99 O2 % 90.0 100.0 80.0 ABG pCO2 41.2 38.8 35.7 ABG pO2 76 174 H 167 H Zachariah Test Positive Respiration Rate 16 20 20 O2 Delivery Device Adult Vent Adult Vent Adult Vent Vent Mode AC AC AC Tidal Volume 450.0 450.0 450.0 POC PEEP 5 5 5 Crit Call To/Read Back Yes Blood Gas Notified Whom david Blood Gas Notified Time 11:38:50 Radiography Diagnostic Testing: Radiology Impression Echocardiogram 10/05/24 05:01 Interpretation Summary The estimated ejection fraction is 50-55 %. Patient is post Cardiac arrest Limited TTE with low-normal EF Ordering Physician: Chang Villanueva Referring Physician: OTD Performed By: Dolores Boyle, MACO, RVT X-Ray 10/06/24 01:55 IMPRESSION: Nasogastric tube crosses the diaphragm with side port in the body of the stomach and tip towards the antrum, satisfactory position. Reading Location: [facility] Chest X-Ray 10/06/24 02:10 IMPRESSION: No significant interval change in appearance of patchy bibasilar opacities which may represent developing pneumonia. Reading Location: [facility] Physical Exam Const Constitutional Narrative: Intubated and sedated, not following commands. Upper middle-aged male, class I obesity, lethargic and ill-appearing. HEENT normocephalic, head/scalp atraumatic and nasal mucous membranes and turbinates normal HEENT Narrative: ET tube in place. Neck Neck Narrative: CVC line in place. Chest inspection of chest normal Resp normal respiratory effort and no use of accessory muscles Resp Narrative: Diminished breath sounds noted bilaterally throughout. Cardio no murmurs and peripheral pulses 2+ throughout Cardio Narrative: Tachycardic, regular rhythm. GI soft to palpation and non-distended Extremity Extremity Narrative: Extremities mottled in appearance. No edema noted. Assessment & Plan Assessment/Plan (1) Sepsis: (2) Acute pyelonephritis: (3) Acute kidney injury: (4) Metabolic acidosis: (5) Rhabdomyolysis: PLAN: Plan Patient is a 59-year-old male who presented to [facility] ED on 10/04/2024 with worsening weakness and slurred speech. 1. Septic shock secondary to gram-negative bacteremia presumed due to acute pyelonephritis with multisystem organ failure, concern for aspiration pneumonia ? Marketing Production Manager following. Met sepsis criteria on admit with lactic acidosis, encephalopathy, severe CHRISTINE, fevers, hypotension and suspected urinary source versus aspiration pneumonia. CT chest abdomen pelvis without contrast showed findings suggestive of bilateral pyelonephritis as well as diffuse bladder wall thickening; also showed patchy infiltrates in the left upper lobe and right middle lobes. UA with 500 leukocyte esterase, negative nitrates but 4+ bacteria. Treated with 30 cc/kg plus additional IV fluids for rhabdomyolysis with continued hypotension requiring pressor medications. Blood cultures 2 out of 2 positive for gram-negative bacteria. Currently treating with Levophed, vasopressin, and stress dose steroids to maintain MAP greater than 65. Continue IV vancomycin and Zosyn. Patient unfortunately with multisystem organ failure including respiratory failure, kidney failure and liver failure is at a below. Prognosis guarded, goals of care discussions with family ongoing. 2. Acute respiratory failure ? Marketing Production Manager following as above. Patient with respiratory failure requiring intubation on morning of 10/05. Respiratory failure multifactorial from encephalopathy, pulmonary edema in setting of heavy IV fluid resuscitation and possible aspiration pneumonia. Treatment as above and below. Continue ventilator management per product scientist. 3. Acute toxic versus metabolic encephalopathy ? Marketing Production Manager following as above. Patient only A&O x1 to person on admit. Suspected this was multifactorial from poor clearance of home morphine and gabapentin in setting of severe CHRISTINE, with UTI and septic shock contributing. Patient now intubated and sedated. Holding home medications at this time. 4. Acute renal failure with hyperkalemia and severe metabolic acidosis ? Nephrology following. Creatinine 3.61 on admit, baseline around 0.6. Presumed secondary to sepsis and rhabdomyolysis. Severely worsened on morning of 10/05 with creatinine 4.97 and potassium 7.1 with minimal urine output. ABG with pH 6.9, bicarb 9, CO2 40, pO2 116. Temporary HD line in place and patient initiated on CRRT on 10/05. Remains on CRRT on 10/06. Holding on further IV fluids for now with patient on CRRT. Monitoring labs frequently. Bynum catheter in place for accurate I's and O's. 5. Rhabdomyolysis ? CPK level greater than 22,000 on admit. Had fall at home with last known well around 2200 and was found facedown on the floor about 7 hours later. CPK level unfortunately remains greater than 22,000 on 10/06. Continue treatment as above. 6. Hyponatremia, improved ? Sodium 125 on admit, chloride 77. Presume secondary to severe volume depletion in setting of septic shock. Given heavy IV fluids on admit and now treating with CRRT as above. Most recent sodium 133 on 10/06. 7. Acute liver failure ? Presumed secondary to septic shock as noted above. Severely elevated liver enzymes on admission that have remained stable. Most recent INR 1.9 on 10/06. Continue to monitor with treatment as above. 8. Hypocalcemia ? Nephrology following as above. Calcium clara of 5.7 on 10/05. Treating with CRRT and monitoring labs as above. 9. Elevated troponin level ? Troponin trend 96 > 85 > 94. No EKG changes noted. Echo on 10/05 with EF 50%, improved from 1 month ago. Strongly suspect demand ischemia in setting of septic shock as above. No further cardiac workup needed. 10. History of CAD with recent CABG x 5, chronic mild HFrEF, hypertension, hyperlipidemia ? Follows with cardiology in [place]. Had recent CABG x 5 in August. Echo in August showed EF 40 to 45%. Repeat echo on 10/05 as noted above. Continue home aspirin, holding Plavix. Holding home blood pressure medications for now in setting of sepsis. Holding home Zetia in setting of rhabdo. 11. Chronic pain syndrome ? On home duloxetine, gabapentin, morphine and hydrocodone?acetaminophen as needed. Reviewed OARRS and patient has been filling these regularly. Holding home medications at this time. Chronic medical conditions: ? Class I obesity with AG: BMI 31 on admit. Complicates hospital course, care and prognosis. ? Reported frequent alcohol use: Was reported at ED visit in early September. Alcohol level negative on admit. ? Tobacco use: Nicotine replacement therapy available as needed. DVT prophylaxis: Heparin subcu CODE STATUS: Full code, verified Expected disposition: TBD Total clinical time spent by myself addressing the patient's medical issues, reviewing all the data, and collaborating with patient's care team: 35 minutes. Charges/Coding Visit Charges Inpatient E&M: 79005 Subs Hosp L2 NIHSS NIHSS Nursing Documentation NIHSS Nursing Documentation: NIHSS: Ischemic Stroke/TIA Start: 10/04/24 11:06 Freq: Status: Active Protocol: Activity Type Activity Date Activity User E-sign Co-sign Detail Recorded Client Recorded Date Recorded By Document 10/04/24 10:45 [facility] [id number] 10/04/24 11:07 LR 10/04/24 10:45 NIH Stroke Scale [NIHSS] A score of 0 is normal or asymptomatic . Total possible score is 42. Inpatient: RN or Physician to activate a stroke alert for onset of new stroke symptoms or with NIHSS increase >/= 3 points. Following change in neurological status, NIHSS will be performed per physician order or more frequently PRN. -1a. Level of Consciousness 1 - Not alert; Arousable by minor stimuli to obey, answer & respond -1b. LOC Questions 0 - Answers BOTH questions correctly -1c. LOC Commands 0 - Performs BOTH tasks correctly -2. Best Gaze 0 - Normal -3. Visual 0 - No visual loss -4. Facial Palsy 0 - Normal symmetrical movements -5a. Left Arm 2 - Some effort against gravity; -5b. Right Arm 0 - No drift; arm holds 90 ( or 45) degrees for full 10 seconds -6a. Left Leg 2 - Some effort against gravity; -6b. Right Leg 0 - No drift; leg holds 30- degree position for full 5 seconds -7. Limb Ataxia 0 - Absent -8. Sensory 1 - Mild-to- moderate sensory loss; -9. Best Language 1 - Mild-to- moderate aphasia; -10. Dysarthria 1 = Mild-to- moderate dysarthria; -11. Extinction and Inattention 0 - No abnormality -Total 8 Query Text:A score of 0 is normal or asymptomatic. Total possible score is 42 . ED: Notify Physician for NIHSS increase by > / = 3 points. Inpatient: RN or Physician to activate a stroke alert for NIHSS increase of > / = 3 points.
--- NOTE | 2024-10-06 11:47 | PCM.PN.REN ---
Subjective Subjective Events noted. Has been running on CRRT. Potassium is somewhat better today. Acidosis somewhat better. Phosphate is trending down. However overall critically ill. Despite being on CRRT and other maximum treatment, lab abnormalities continue. Severe acute liver injury, likely ischemic hepatitis. Blood culture is positive for Enterobacter. Antibiotics as per primary. Anuric, predictably. Remains on 3 pressors. Objective Data Objective Data Vital Signs: Vital Signs Temp Pulse Resp BP Pulse Ox O2 Del Method O2 Flow Rate 98.8 F 135 H 20 H 73/49 L 94 Mechanical Ventilator 10 10/06/24 11:00 10/06/24 11:30 10/06/24 11:14 10/06/24 11:30 10/06/24 06:45 10/06/24 11:00 10/04/24 19:08 FiO2 60 10/06/24 11:14 Oxygen Flow Rate (L/min) 10 Oxygen Delivery Method Mechanical Ventilator Weight: 97.6 kg Body Mass Index (BMI) 33.7 Intake & Output: Intake and Output for Last 24 Hours 10/04/24 10/05/24 10/06/24 23:59 23:59 23:59 Intake Total 5182.72 / 5201.52 6836.23 / 6921.73 3910.52 / 3910.52 Output Total 1150 / 1150 3355 / 3559 2745 / 2745 Balance 4032.72 / 4051.52 3481.23 / 3362.73 1165.52 / 1165.52 Lab / Micro Data 10/06/24 03:10 10/06/24 08:40 Labs: Laboratory Results - last 24 hr 10/05/24 09:40: Carbon Dioxide 8.5 L*, Anion Gap 32 H, Calcium 6.4 L* 10/05/24 11:25: PT 23.3 H, INR 2.0, APTT 42.7 H, Random Vancomycin 5.9 10/05/24 15:25: Sodium 131 L, Potassium 5.9 H, Chloride 95 L, Carbon Dioxide 16.0 L, Anion Gap 20 H, BUN 71 H, Creatinine 3.57 H, Estim Creat Clear Calc 24.02 L, Est GFR (MDRD) Non-Af 19 L, BUN/Creatinine Ratio 19.9, Glucose 210 H, Calcium 6.9 L, Phosphorus 9.9 H*, Magnesium 2.8 H, Albumin 2.1 L 10/05/24 21:00: Sodium 131 L, Potassium 6.3 H*, Chloride 94 L, Carbon Dioxide 16.6 L, Anion Gap 21 H, BUN 60 H, Creatinine 3.01 H, Estim Creat Clear Calc 28.49 L, Est GFR (MDRD) Non-Af 23 L, BUN/Creatinine Ratio 19.9, Glucose 197 H, Calcium 6.9 L, Phosphorus 8.1 H, Magnesium 2.8 H, Albumin 2.2 L 10/06/24 03:10: WBC 19.9 H, RBC 3.37 L, Hgb 10.5 L, Hct 29.8 L, MCV 88.4, MCH 31.2, MCHC 35.2, RDW Std Deviation 49.1 H, RDW Coeff of Deepa 15.4 H, Plt Count 225, MPV 10.9, Sodium 131 L, Potassium 6.1 H*, Chloride 94 L, Carbon Dioxide 16.5 L, Anion Gap 21 H, BUN 53 H, Creatinine 2.76 H, Estim Creat Clear Calc 31.07 L, Est GFR (MDRD) Non-Af 26 L, BUN/Creatinine Ratio 19.3, Glucose 209 H, Calcium 6.4 L*, Phosphorus 7.3 H, Magnesium 2.5 H, Total Bilirubin 1.30, Direct Bilirubin 0.83 H, AST 4462 H, ALT 972 H, Alkaline Phosphatase 408 H, Total Creatine Kinase > 49152 H 10/06/24 03:10: Total Creatine Kinase > 04890 H, Total Protein 5.0 L, Albumin 2.1 L, Globulin 3.0, Triglycerides 176 10/06/24 08:40: PT 22.2 H, INR 1.9, Sodium 133, Potassium 5.7 H, Chloride 95 L, Carbon Dioxide 17.4 L, Anion Gap 21 H, BUN 44 H, Creatinine 2.34 H, Estim Creat Clear Calc 37.84 L, Est GFR (MDRD) Non-Af 31 L, BUN/Creatinine Ratio 18.8, Glucose 160 H, Calcium 6.4 L*, Phosphorus 6.1 H, Magnesium 2.4 H, Albumin 2.0 L Micro: Microbiology 10/05/24 13:30 Sputum, Induced/Lukens Gram Stain - Final 10/04/24 06:02 Urine Catheter - Elena Urine Culture - Final Enterobacter cloacae complex 10/04/24 06:24 Blood Culture (Wb) - Anticubital Right Blood Culture - Final Enterobacter cloacae complex ABG Data ABG results: ABG 10/05/24 10/06/24 15:57 03:27 Specimen Type ART ART Sample Site Art Line Art Line pH 7.32 L 7.32 L Bicarbonate Actual 20.2 L 18.4 L Total CO2 21 20 Base Excess -6 L -8 L O2 Saturation 100 H 99 O2 % 100.0 80.0 ABG pCO2 38.8 35.7 ABG pO2 174 H 167 H Zachariah Test Positive Respiration Rate 20 20 O2 Delivery Device Adult Vent Adult Vent Vent Mode AC AC Tidal Volume 450.0 450.0 POC PEEP 5 5 Radiography Diagnostic Testing: Radiology Impression Echocardiogram 10/05/24 05:01 Interpretation Summary The estimated ejection fraction is 50-55 %. Patient is post Cardiac arrest Limited TTE with low-normal EF Ordering Physician: Chang Villanueva Referring Physician: OTD Performed By: Dolores Boyle, MACO, RVT X-Ray 10/06/24 01:55 IMPRESSION: Nasogastric tube crosses the diaphragm with side port in the body of the stomach and tip towards the antrum, satisfactory position. Reading Location: [facility] Chest X-Ray 10/06/24 02:10 IMPRESSION: No significant interval change in appearance of patchy bibasilar opacities which may represent developing pneumonia. Reading Location: [facility] Physical Exam Narrative no obvious distress no pallor no icterus no JVD s1s2 no murmurs lungs clear abdomen soft no organomegaly no edema mottled elena + Assessment & Plan Assessment/Plan (1) Metabolic acidosis: (2) Acute kidney injury: PLAN: Acute renal failure. Presumably ischemic ATN in the setting of severe septic shock. Gram-negative bacteremia, presumably urinary origin. Severe metabolic acidosis, presumably lactic acid related. Hyperkalemia in the setting of renal failure and acidosis. Rhabdomyolysis. Severe. Likely due to prolonged immobilization Acidosis, in the setting of renal failure Hyperkalemia in the setting of rhabdomyolysis, acidosis, renal failure Remains on CRRT. Labs are somewhat better but he is critically ill. Remains on 3 pressors. Continue current treatment. Discussed with primary service (3) Septic shock:
--- NOTE | 2024-10-06 12:00 | CASEMGMT ---
RN CM NOTE: Pt remains intubated. not in room at this time. Per Dr Yang PN this AM, he has spoken w/ about pt's condition & code status and she was wanting to talk w/her family being making decisions. Initial RN CM assessment deferred at this time. Gilda TYLERN RN CM
[2024-10-06] MEDS: fentaNYL drip 100 ML 12.5 MCG CONT INF (12:17)
[2024-10-06] MEDS: Phenylephrine 10 MG in 0.9% Normal Saline (250mL Bag) 249 ML 195 MG CONT INF (12:22)
[2024-10-06 13:05] LABS: Base Excess -17 mmol/L (-2 to +2); Bicarbonate 11.6 mmol/L (22-26); Blood Gas Specimen Type ART; Mode AC; O2 Delivery Device Adult Vent; PEEP 5; PO2 92 mmHG (75-100); RR 20; SITE Art Line; SO2 94 % (95-99); Time Given 13:01:42; Total Carbon Dioxide 13 mmol/L; pCO2 33.6 mmHg (35-45); pH 7.15 (7.35-7.45)
[2024-10-06] MEDS: Sodium Bicarbonate 150 MEQ in Dextrose 5%-Water (1000mL Bag) 1,000 ML 200 MEQ IV (13:34)
[2024-10-06] MEDS: Phenylephrine 40 mg/250 mL 0.9% NS 63.8 MG CONT INF (13:34)
[2024-10-06] MEDS: Vancomycin HCl 1,750 MG in 0.9% Normal Saline (500mL Bag) 500 ML 250 MG IV (14:01)
--- NOTE | 2024-10-06 14:11 | CASEMGMT ---
Social Work- SW called non-emergency to do a wellness check for pt , as she has been unable to be reached by staff and family. SW requested pt come to hospital, as pt is declining and medical staff are needing to be present for decision-making. JUAN JOSE collaborated with bedside nurse. THI Kamara
--- NOTE | 2024-10-06 15:12 | PCM.RX.CS ---
Consult Antibiotic Management Pharmacy has been consulted to manage selected antibiotic: Vancomycin Type of Intervention Type of Consult: Follow-up Suspected Infection Suspected Infection: Sepsis Prior Doses of Antibiotics Prior Doses of Antibiotics Received/Current Regimen: Vancomycin 1000 mg Q12H last dose given 10/06 @ 0145 Labs Labs: Vancomycin Trough 9.0 ug/mL (5.0-15.0) 10/06/24 12:25 Random Vancomycin 5.9 ug/mL (0.0-15.0) 10/05/24 11:25 Microbiology Microbiology: Microbiology 10/05/24 13:30 Sputum, Induced/Lukens Gram Stain - Final 10/05/24 13:30 Sputum, Induced/Lukens Respiratory Culture - Preliminary Yeast Like Organism 10/04/24 06:02 Urine Catheter - Bynum Urine Culture - Final Enterobacter cloacae complex 10/04/24 06:24 Blood Culture (Wb) - Anticubital Right Blood Culture - Final Enterobacter cloacae complex Dosing Weight Weight used for dosin kg Estimated Creatinine Clearance Estimated Creatinine Clearance: CRRT Goal Trough Goal Trough: 15-20 mcg/mL Pharmacy Plan for Drug Dosing Pharmacy Plan for Drug Dosing: Vancomycin trough = 9.0, pt on CRRT will increase to 1750 mg Q12H with trough tomorrow Pharmacy Service will continue to monitor and adjust dosing as required. Follow-Up Labs Follow-Up Labs: Trough: Vancomycin Date/Time Labs Ordered Labs to be done on [date and time ordered]: 10/07/24 @ 1300
[2024-10-06 15:14] LABS: Anion Gap 28 (5-15); BUN 38 mg/dL (4-19); BUN/Creat Ratio 16.4 RATIO (10-20); Calcium,Total 6.4 mg/dL (7.6-11.0); Carbon Dioxide 8.5 mmol/L (21.0-32.0); Chloride 97 mmol/L (98-108); Creatinine, Serum 2.33 mg/dL (0.70-1.20); EST Glomerular Filtration Rate 31 (>60); Glucose 42 mg/dL (70-99); Potassium 6.9 mmol/L (3.3-5.1); Sodium Level 134 mmol/L (133-145)
[2024-10-06] MEDS: Dextrose 10%-Water 250 ML 999 ML IV ×3 (15:29→16:43)
[2024-10-06 16:20] LABS: Bedside Glucose 57 mg/dL (74-106)
--- NOTE | 2024-10-06 16:49 | NURSING ---
Dr Fajardo at bedside speaking to patients and sister. Very poor prognosis given and discussed patients wishes, code status, and withdrawal of care. Patients and sister are talking it over and will give answer soon.
[2024-10-06 16:51] LABS: Bedside Glucose 59 mg/dL (74-106)
--- NOTE | 2024-10-06 17:16 | PCM.HOSP.N ---
Hospitalist Note Patient's spoke with patient's , sister and sister's at the bedside late this afternoon. Patient unfortunately has multisystem organ failure and maxed Levophed, Michael-Synephrine and vasopressin his MAP is hovering around 45-50. He has now required 3 D10 boluses for low blood sugars and his body temperature has dropped from 98 to 96F over the past hour or so. Told the that unfortunately it appears that he is actively dying. I discussed with them that if he remained full code, he would likely arrest in the next hour or so and chest compressions would not be helpful for him. They were in agreement with this. CODE STATUS changed to DNR CCA. I recommended that they take some time with him, but that when they were ready nursing staff could wean off of his vasopressors and he would pass away. They were in agreeable with this as well.
--- NOTE | 2024-10-06 17:44 | NURSING ---
This RN called to the bedside by patients family. Patients stated that they wish to change the patients code status and withdraw care at this time. Dr Fajardo notified, will proceed with withdrawal of care once orders are received reflecting the change.
--- NOTE | 2024-10-06 18:00 | NURSING ---
Orders received from Dr Fajardo to make the patient DNRCC status and remove Endotracheal tube and stop all previous medications. Ett removed by Summer Rt(R) with family remaining at the bedside.
--- NOTE | 2024-10-06 18:13 | CPS ---
terminal extubation at 181
--- NOTE | 2024-10-06 20:46 | NURSING ---
Left with director of pharmacy for [facility] at 2044.
--- NOTE | 2024-10-07 08:56 | DCINST_ITS ---
Discharge Instructions DC O2, CPAP, BIPAP needs Home O2 Discharge instructions: No Follow Up Care Test Results: Test results from this visit will be discussed in further detail at your follow- up appointment, if applicable. Discharge Plan Admission Admit Date/Time: 10/04/24 08:14 Primary Reason for Your Visit: fall Attending Provider: Ace Fajardo Primary Care Provider: SHANEKA CONKLIN Consulting Providers: Yuan Nagel; Jimmy Muniz; Laz Sykes; Juanito Yang; Jay Lopez; Darien Galvan; Luigi Paz; Alison Conley; Erik Poole; Darinel Hernandez; Salbador Zarate; Beth Fontaine; Stas Jang; Elidia Corral; Bryce Cruz; Isak Del Valle; Jose Menjivar; Chaparro Granda; Elisabeth Bauer; Trupti Wakefield; Augustine Trejo; Arnel Metz; Cristi Rudd; Dominic Gudino; Chang Villanueva F Disposition Disposition (needs filled in before D/C Order can be placed):
--- NOTE | 2024-10-07 08:56 | EXP.PCM_ITS ---
Preliminary Cause of Preliminary Cause of Preliminary Cause of : Septic shock leading to multisystem organ failure Date of Admission: 10/04/24 Date of : 10/06/24 Principle Diagnosis Problem List: Active and Suspected Problems (Updated 10/05/24 @ 17:[address] Dominic Gudino MD) Cardiac arrest with successful resuscitation (Acute) Septic shock (Acute) Acute pyelonephritis (Acute) Metabolic acidosis (Acute) Acute CVA (cerebrovascular accident) (Acute) Rhabdomyolysis (Acute) Acute kidney injury (Acute) UTI (urinary tract infection) (Acute) Sepsis (Acute) Hospital Course Patient is a 59-year-old male who presented [facility] ED on 10/04/2024 with worsening weakness and a fall at home. On arrival patient met sepsis criteria with lactic acidosis, encephalopathy, severe CHRISTINE, fevers, and hypotension. UA was grossly positive for infection and CT abdomen pelvis showed suspected bilateral pyelonephritis. Patient was admitted to the ICU. He was treated with 30 cc/kg of IV fluids and broad-spectrum antibiotics, but unfortunately he remained hypotensive despite these fluids and was started on vasopressors. Labs on admission were also notable for CPK greater than 22,000 consistent with severe rhabdomyolysis and significant elevated transaminases with mildly elevated INR consistent with ischemic hepatitis. His encephalopathy was suspected multifactorial in setting of septic shock as well as poor renal clearance of home gabapentin and morphine in setting of acute renal failure. On the evening of admission patient became more hypoxic and was placed on BiPAP. In the news production assistant of hospital day 2 he went into SVT requiring 2 rounds of adenosine. He then developed into pulseless V. tach and CODE BLUE was called. He was intubated at that time and started on amiodarone and regained a pulse after 1 round of CPR. He was found to be severely acidotic on morning labs and had worsening kidney failure. Watch Assembly Inspector and nephrology follow-up during this hospitalization. Patient was initiated on CRRT on the morning of hospital day 2. He did have improvement in labs but unfortunately he continued to have high vasopressor requirements. On the morning of hospital day 3 he continued to have CPK level greater than 22,000, high vasopressor requirements and worsening INR and transaminases concerning for acute liver failure. Blood cultures were positive for gram-negative rods. Unfortunately despite maxed vasopressors, stress dose steroids and broad-spect rum IV antibiotics he continued to deteriorate. Family arrived at the bedside on the afternoon of 10/06. Patient was maxed on pressors with MAPs in the 40s consistently. He had required 3 D10 boluses for low blood sugars presumed due to liver failure, and his body temperature was beginning to drop. Discussed with web application dev specialist and nephrology who noted that there were no further interventions available for the patient. Discussed with family and they were agreeable to transitioning patient to DNR CC. Patient peacefully on 10/06 with family at the bedside. Time of 1812. Discharge diagnoses: ? Septic shock secondary to gram-negative bacteremia presumed due to acute pyelonephritis ? Acute respiratory failure ? Acute renal failure with hyperkalemia and severe metabolic acidosis ? Acute toxic versus metabolic encephalopathy ? Acute liver failure ? Severe rhabdomyolysis ? Hyponatremia ? Hypocalcemia ? Elevated troponin level ? History of CAD with recent CABG x 5, chronic mild HFrEF, hypertension, hyperlipidemia ? Chronic pain syndrome ? Class I obesity with AG ? Tobacco use ? Reported frequent alcohol use Total clinical time spent by myself addressing the patient's medical issues, reviewing all the data, and collaborating with patient's care team: 45 minutes. Assessment & Plan Assessment/Plan (1) Septic shock: Visit Charges Inpatient E&M: 16623 Disch Hosp >30min
== END 2024-10-06 20:45 | DRG 871 ==
LOC: ED 08:33 → ICU 09:14
PROVIDERS: Family Medicine; Internal Medicine Critical Care Medicine; Internal Medicine Nephrology; Admitting Provider Hospitalist; Emergency Provider Emergency Medicine; Visit Provider Hospitalist
DX: A41.50 Gram-negative sepsis, unspecified (principal); J69.0 Pneumonitis due to inhalation of food and vomit; K72.00 Acute and subacute hepatic failure without coma; N17.0 Acute kidney failure with tubular necrosis; R65.21 Severe sepsis with septic shock; J96.01 Acute respiratory failure with hypoxia; G92.8 Other toxic encephalopathy; I21.A1 Myocardial infarction type 2; M62.82 Rhabdomyolysis; I50.22 Chronic systolic (congestive) heart failure; I47.20 Ventricular tachycardia, unspecified; E87.20 Acidosis, unspecified; E87.1 Hypo-osmolality and hyponatremia; I47.10 Supraventricular tachycardia, unspecified; N10 Acute pyelonephritis; I11.0 Hypertensive heart disease with heart failure; E66.811 Obesity, class 1; G47.33 Obstructive sleep apnea (adult) (pediatric); E87.5 Hyperkalemia; I25.10 Atherosclerotic heart disease of native coronary artery without angina pectoris; E86.9 Volume depletion, unspecified; E83.51 Hypocalcemia; F10.90 Alcohol use, unspecified, uncomplicated; Z79.02 Long term (current) use of antithrombotics/antiplatelets; Z68.31 Body mass index [BMI] 31.0-31.9, adult; R91.8 Other nonspecific abnormal finding of lung field; G89.4 Chronic pain syndrome; Z79.82 Long term (current) use of aspirin; Z95.1 Presence of aortocoronary bypass graft; N16 Renal tubulo-interstitial disorders in diseases classified elsewhere; Z66 Do not resuscitate; Z51.5 Encounter for palliative care; Z86.73 Personal history of transient ischemic attack (TIA), and cerebral infarction without residual deficits
CPT/HCPCS: 31500; 31720; 36569; 36600; 51702; 70450; 70496; 70498; 71045; 71250; 72170; 74018; 74176; 80048; 80053; 80069; 80076; 80143; 80179; 80202; 80307; 81001; 82077; 82330; 82550; 82803; 82962; 83605; 83690; 83735; 84100; 84145; 84478; 84484; 85025; 85027; 85610; 85730; 87040; 87070; 87077; 87086; 87088; 87186; 87205; 90947; 92610; 92950; 93005; 93308; 94002; 94003; 94762; 97802; 97803; 99285; Q9957; Q9967; A4216; J0153; J2405